=== PATIENT | male | born 1965 | race African-American/Black ===

== ENCOUNTER 2016-02-26 13:04 | Emergency (ER) | payer MEDICARE, MEDICAID ==
[2016-02-26] MEDS ORDERED: Triple Antibiotic Oint 1 GM Packet ONE (13:39)
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
== END 2016-02-26 14:03 | disposition home or self-care (01) ==
LOC: BURERS 13:04
DX: T21.24XA Burn of second degree of lower back, initial encounter (principal); E11.9 Type 2 diabetes mellitus without complications; K21.9 Gastro-esophageal reflux disease without esophagitis; I10 Essential (primary) hypertension; F20.9 Schizophrenia, unspecified; X19.XXXA Contact with other heat and hot substances, initial encounter
CPT/HCPCS: 36416; 99283

== ENCOUNTER 2016-03-10 10:59 | Outpatient (CLI) | payer MEDICARE, MEDICAID ==
--- NOTE | 2016-03-10 21:13 | RAD ---
LUMBAR SPINE 03/10/16 Multiple views are provided. There has been a prior laminectomy at the L4 and L5 levels that extends down to the top of S1. Minor anterolisthesis of L4 on L5 is probably due to facet arthritis which i s prominent at that level. The disc spaces all remain normal in height. Some small anterior osteophy emery are noted at most levels. Very minor anterior wedging of T11 through L1 does not appear acute an d is probably longstanding. The oblique views shows the pars to be intact bilaterally. The SI joints are unremarkable. IMPRESSION: Degenerative changes as noted but no acute finding. POS: HOME
== END 2016-03-10 11:00 | disposition home or self-care (01) ==
LOC: BURRAD 10:59
PROVIDERS: ATTEND Family Medicine
DX: M54.5 Low back pain (principal); M47.816 Spondylosis without myelopathy or radiculopathy, lumbar region
CPT/HCPCS: 72110

== ENCOUNTER 2016-04-07 10:49 | Emergency (ER) | payer MEDICARE, MEDICAID ==
[2016-04-07] MEDS ORDERED: Bacitracin Zinc 1 Packet ONE (11:08)
[2016-04-07 11:40] LABS: #Basophils 0.1 thou/uL (0.0-0.2); #Eosinphils 0.2 thou/uL (0.0-0.7); #Lymphocytes 1.2 thou/uL (1.20-3.40); #Monocytes 0.6 thou/uL (0.11-0.59); #Neutrophils 3.4 thou/uL (1.40-6.50); %Eosinophils 2.8 % (0.0-10.0); %Monocytes 11.2 % (0.0-10.0); Hematocrit 48.9 % (42.0-52.0); Mean Platelet Volume 7.7 fL (7.4-10.4); Red Blood Cell (RBC) Count 5.37 mill/uL (4.70-6.10); White Blood Cell (WBC) Count 5.4 thou/uL (4.8-10.8)
[2016-04-07 11:48] LABS: ALT (SGPT) 32 U/L (0-55); AST (SGOT) 35 U/L (5-34); Acetaminophen Less than 3.0 mcg/mL (10.0-30.0); Alkaline Phosphatase 71 U/L (40-150); Anion Gap 16 mmol/L (10-20); BUN (Urea Nitrogen) 12 mg/dL (8.4-25.7); Bilirubin, Total 1.5 mg/dL (0.2-1.2); Calc. Creatinine Clearance 0 mL/min (70-130); Calcium 9.7 mg/dL (7.8-10.44); Carbon Dioxide 23 mmol/L (22-29); Chloride 105 mmol/L (98-107); Estimated GFR-MDRD 74; Globulin 3.5 g/dL (2.4-3.5); Protein, Total 8.2 g/dL (6.0-8.3); Salicylate Less than 5.0 mg/dL (15.0-30.0)
[2016-04-07 11:49] LABS: Troponin I 0.012 ng/mL (< 0.028)
[2016-04-07] MEDS ORDERED: Lisinopril 5 MG TAB ONE (15:23)
--- NOTE | 2016-04-07 16:15 | RAD ---
PORTABLE CHEST: Date: 04-07-16 Comparison: 10-15-15 FINDINGS: There has been no adverse interval change. The heart size is normal. There is no congestive change , pleural effusion, or focal pulmonary infiltrate. If symptoms continue, upright PA and lateral vie ws could be helpful. IMPRESSION: No acute finding. POS: HOME
== END 2016-04-07 17:38 ==
LOC: BURERS 10:49
DX: T21.34XD Burn of third degree of lower back, subsequent encounter (principal); F20.9 Schizophrenia, unspecified; I10 Essential (primary) hypertension; K21.9 Gastro-esophageal reflux disease without esophagitis; E11.9 Type 2 diabetes mellitus without complications; J45.909 Unspecified asthma, uncomplicated; F31.9 Bipolar disorder, unspecified; Z86.711 Personal history of pulmonary embolism; Z79.899 Other long term (current) drug therapy
CPT/HCPCS: 36415; 71010; 80053; 80307; 82553; 84443; 84484; 85025; 99285

== ENCOUNTER 2016-04-23 13:04 | Inpatient (IN) | payer MEDICARE, MEDICAID ==
[2016-04-23] MEDS ORDERED: Dextrose 5% in Water 1,000 ML IV PRN (15:43)
[2016-04-23] MEDS ORDERED: Dextrose 50% Abboject 50 ML SYRINGE IVP PRN (15:44)
[2016-04-23] MEDS: traMADol HCl 50 MG TAB PO PRN (17:29)
[2016-04-23] MEDS: Arformoterol 15 MCG/2 ML NEB NEB SCH (19:43)
[2016-04-23] MEDS: Budesonide 0.5 MG/2 ML NEB NEB SCH (19:53)
[2016-04-23] MEDS: Montelukast Sodium 10 mg Tablet PO SCH (20:43)
[2016-04-23] MEDS: Tamsulosin HCl 0.4 MG CAP PO SCH (20:43)
[2016-04-24] MEDS ORDERED: FLU VACC QS2016-17 36MOS UP/PF 0.5 ML SYRINGE IM ONE (09:00)
[2016-04-24] MEDS: Budesonide 0.5 MG/2 ML NEB NEB SCH ×2 (09:07→18:57)
[2016-04-24] MEDS: Rivaroxaban 10 MG TAB PO SCH (09:09)
[2016-04-24] MEDS: Finasteride 5 MG TAB PO SCH (09:10)
[2016-04-24] MEDS: glyBURIDE 5 MG TAB PO SCH (09:10)
[2016-04-24] MEDS: Lisinopril 5 MG TAB PO SCH (09:10)
[2016-04-24] MEDS: Aripiprazole 10 MG TAB PO SCH (09:11)
[2016-04-24] MEDS: traMADol HCl 50 MG TAB PO PRN (09:18)
[2016-04-24] MEDS: Arformoterol 15 MCG/2 ML NEB NEB SCH ×2 (09:19→18:49)
[2016-04-24] MEDS: Silver Sulfadiazine 1% Cream 20 GM TUBE TOP SCH ×2 (09:22→14:40)
[2016-04-24] MEDS ORDERED: Silver Sulfadiazine 1% Cream 50 GM JAR ONE (11:50)
[2016-04-24] MEDS: Montelukast Sodium 10 mg Tablet PO SCH (21:30)
[2016-04-24] MEDS: Tamsulosin HCl 0.4 MG CAP PO SCH (21:30)
[2016-04-24] MEDS: HumaLOG 300 UNITS/3 ML VIAL SC PRN (21:41)
[2016-04-25] MEDS: Arformoterol 15 MCG/2 ML NEB NEB SCH ×2 (06:14→18:32)
[2016-04-25] MEDS: Budesonide 0.5 MG/2 ML NEB NEB SCH ×2 (06:18→18:51)
[2016-04-25] MEDS: Lisinopril 5 MG TAB PO SCH (08:26)
[2016-04-25] MEDS: glyBURIDE 5 MG TAB PO SCH (08:26)
[2016-04-25] MEDS: Finasteride 5 MG TAB PO SCH (08:26)
[2016-04-25] MEDS: Aripiprazole 10 MG TAB PO SCH (08:26)
[2016-04-25] MEDS: Rivaroxaban 10 MG TAB PO SCH (08:27)
[2016-04-25] MEDS: traMADol HCl 50 MG TAB PO PRN ×3 (08:27→20:27)
[2016-04-25] MEDS: Silver Sulfadiazine 1% Cream 20 GM TUBE TOP SCH (08:28)
[2016-04-25] MEDS: HumaLOG 300 UNITS/3 ML VIAL SC PRN (08:28)
[2016-04-25] MEDS: Montelukast Sodium 10 mg Tablet PO SCH (20:26)
[2016-04-25] MEDS: Tamsulosin HCl 0.4 MG CAP PO SCH (20:27)
[2016-04-26] MEDS: Arformoterol 15 MCG/2 ML NEB NEB SCH ×2 (05:52→18:44)
[2016-04-26] MEDS: Budesonide 0.5 MG/2 ML NEB NEB SCH ×2 (06:20→18:33)
[2016-04-26] MEDS: Lisinopril 5 MG TAB PO SCH (08:54)
[2016-04-26] MEDS: Aripiprazole 10 MG TAB PO SCH (08:54)
[2016-04-26] MEDS: Rivaroxaban 10 MG TAB PO SCH (08:54)
[2016-04-26] MEDS: Finasteride 5 MG TAB PO SCH (08:54)
[2016-04-26] MEDS: Silver Sulfadiazine 1% Cream 20 GM TUBE TOP SCH (08:55)
[2016-04-26] MEDS: glyBURIDE 5 MG TAB PO SCH (08:55)
[2016-04-26] MEDS: Montelukast Sodium 10 mg Tablet PO SCH (21:02)
[2016-04-26] MEDS: Tamsulosin HCl 0.4 MG CAP PO SCH (21:02)
[2016-04-27] MEDS: Arformoterol 15 MCG/2 ML NEB NEB SCH ×2 (07:12→19:05)
[2016-04-27] MEDS: Budesonide 0.5 MG/2 ML NEB NEB SCH ×2 (07:16→19:11)
[2016-04-27] MEDS: Lisinopril 5 MG TAB PO SCH (09:23)
[2016-04-27] MEDS: Rivaroxaban 10 MG TAB PO SCH (09:26)
[2016-04-27] MEDS: glyBURIDE 5 MG TAB PO SCH (09:27)
[2016-04-27] MEDS: Silver Sulfadiazine 1% Cream 20 GM TUBE TOP SCH (09:27)
[2016-04-27] MEDS: Finasteride 5 MG TAB PO SCH (09:27)
[2016-04-27] MEDS: Aripiprazole 10 MG TAB PO SCH (09:28)
[2016-04-27] MEDS: traMADol HCl 50 MG TAB PO PRN (18:09)
[2016-04-27] MEDS: Tamsulosin HCl 0.4 MG CAP PO SCH (20:45)
[2016-04-27] MEDS: Montelukast Sodium 10 mg Tablet PO SCH (20:45)
[2016-04-28] MEDS: traMADol HCl 50 MG TAB PO PRN ×2 (04:28→10:49)
[2016-04-28] MEDS: Arformoterol 15 MCG/2 ML NEB NEB SCH ×2 (06:24→18:54)
[2016-04-28] MEDS: Budesonide 0.5 MG/2 ML NEB NEB SCH ×2 (06:28→18:52)
[2016-04-28] MEDS: glyBURIDE 5 MG TAB PO SCH (08:59)
[2016-04-28] MEDS: Finasteride 5 MG TAB PO SCH (09:00)
[2016-04-28] MEDS: Aripiprazole 10 MG TAB PO SCH (09:00)
[2016-04-28] MEDS: Lisinopril 5 MG TAB PO SCH (09:00)
[2016-04-28] MEDS: Silver Sulfadiazine 1% Cream 20 GM TUBE TOP SCH (09:01)
[2016-04-28] MEDS: Rivaroxaban 10 MG TAB PO SCH (10:48)
[2016-04-28] MEDS: Tamsulosin HCl 0.4 MG CAP PO SCH (20:47)
[2016-04-28] MEDS: Montelukast Sodium 10 mg Tablet PO SCH (20:47)
[2016-04-29] MEDS: Arformoterol 15 MCG/2 ML NEB NEB SCH ×2 (06:07→17:28)
[2016-04-29] MEDS: Budesonide 0.5 MG/2 ML NEB NEB SCH ×2 (06:09→17:50)
[2016-04-29] MEDS: Aripiprazole 10 MG TAB PO SCH (08:57)
[2016-04-29] MEDS: glyBURIDE 5 MG TAB PO SCH (08:58)
[2016-04-29] MEDS: Finasteride 5 MG TAB PO SCH (08:58)
[2016-04-29] MEDS: Lisinopril 5 MG TAB PO SCH (08:59)
[2016-04-29] MEDS: Silver Sulfadiazine 1% Cream 20 GM TUBE TOP SCH (09:00)
[2016-04-29] MEDS: Rivaroxaban 10 MG TAB PO SCH (09:00)
[2016-04-29] MEDS: Tamsulosin HCl 0.4 MG CAP PO SCH (21:14)
[2016-04-29] MEDS: Montelukast Sodium 10 mg Tablet PO SCH (21:14)
[2016-04-30] MEDS: Arformoterol 15 MCG/2 ML NEB NEB SCH ×2 (09:43→17:52)
[2016-04-30] MEDS: Budesonide 0.5 MG/2 ML NEB NEB SCH ×2 (09:51→17:46)
[2016-04-30] MEDS: Lisinopril 5 MG TAB PO SCH (09:54)
[2016-04-30] MEDS: glyBURIDE 5 MG TAB PO SCH (09:55)
[2016-04-30] MEDS: Aripiprazole 10 MG TAB PO SCH (09:56)
[2016-04-30] MEDS: Rivaroxaban 10 MG TAB PO SCH (09:57)
[2016-04-30] MEDS: Silver Sulfadiazine 1% Cream 20 GM TUBE TOP SCH (09:59)
[2016-04-30] MEDS: Finasteride 5 MG TAB PO SCH (10:04)
[2016-04-30] MEDS: Montelukast Sodium 10 mg Tablet PO SCH (20:22)
[2016-04-30] MEDS: Tamsulosin HCl 0.4 MG CAP PO SCH (20:22)
[2016-05-01] MEDS: Arformoterol 15 MCG/2 ML NEB NEB SCH ×2 (06:21→17:46)
[2016-05-01] MEDS: Budesonide 0.5 MG/2 ML NEB NEB SCH ×2 (06:32→17:44)
[2016-05-01] MEDS: glyBURIDE 5 MG TAB PO SCH (09:46)
[2016-05-01] MEDS: Finasteride 5 MG TAB PO SCH (09:48)
[2016-05-01] MEDS: Aripiprazole 10 MG TAB PO SCH (09:49)
[2016-05-01] MEDS: Rivaroxaban 10 MG TAB PO SCH (09:50)
[2016-05-01] MEDS: Silver Sulfadiazine 1% Cream 20 GM TUBE TOP SCH (09:51)
[2016-05-01] MEDS: Lisinopril 5 MG TAB PO SCH (10:50)
[2016-05-01] MEDS: Montelukast Sodium 10 mg Tablet PO SCH (20:17)
[2016-05-01] MEDS: Tamsulosin HCl 0.4 MG CAP PO SCH (20:17)
[2016-05-02] MEDS: Arformoterol 15 MCG/2 ML NEB NEB SCH ×2 (06:13→19:00)
[2016-05-02] MEDS: Budesonide 0.5 MG/2 ML NEB NEB SCH ×2 (06:23→19:38)
[2016-05-02] MEDS: traMADol HCl 50 MG TAB PO PRN ×2 (09:21→23:13)
[2016-05-02] MEDS: Rivaroxaban 10 MG TAB PO SCH (09:24)
[2016-05-02] MEDS: Finasteride 5 MG TAB PO SCH (09:25)
[2016-05-02] MEDS: Lisinopril 5 MG TAB PO SCH (09:25)
[2016-05-02] MEDS: glyBURIDE 5 MG TAB PO SCH (09:25)
[2016-05-02] MEDS: Aripiprazole 10 MG TAB PO SCH (09:27)
[2016-05-02] MEDS: Silver Sulfadiazine 1% Cream 20 GM TUBE TOP SCH (09:27)
[2016-05-02] MEDS: Montelukast Sodium 10 mg Tablet PO SCH (21:23)
[2016-05-02] MEDS: Tamsulosin HCl 0.4 MG CAP PO SCH (21:23)
[2016-05-03] MEDS: Arformoterol 15 MCG/2 ML NEB NEB SCH ×2 (06:14→18:16)
[2016-05-03] MEDS: Budesonide 0.5 MG/2 ML NEB NEB SCH ×2 (06:18→18:22)
[2016-05-03] MEDS: Finasteride 5 MG TAB PO SCH (08:34)
[2016-05-03] MEDS: glyBURIDE 5 MG TAB PO SCH (08:34)
[2016-05-03] MEDS: Lisinopril 5 MG TAB PO SCH (08:35)
[2016-05-03] MEDS: Silver Sulfadiazine 1% Cream 20 GM TUBE TOP SCH (08:36)
[2016-05-03] MEDS: Rivaroxaban 10 MG TAB PO SCH (08:36)
[2016-05-03] MEDS: Aripiprazole 10 MG TAB PO SCH (08:36)
[2016-05-03] MEDS: traMADol HCl 50 MG TAB PO PRN ×2 (08:39→21:37)
[2016-05-03] MEDS: Montelukast Sodium 10 mg Tablet PO SCH (20:04)
[2016-05-03] MEDS: Tamsulosin HCl 0.4 MG CAP PO SCH (20:04)
[2016-05-04] MEDS: Arformoterol 15 MCG/2 ML NEB NEB SCH ×2 (06:08→18:01)
[2016-05-04] MEDS: Budesonide 0.5 MG/2 ML NEB NEB SCH ×2 (06:12→18:07)
[2016-05-04] MEDS: traMADol HCl 50 MG TAB PO PRN (08:43)
[2016-05-04] MEDS: Lisinopril 5 MG TAB PO SCH (08:43)
[2016-05-04] MEDS: Finasteride 5 MG TAB PO SCH (08:43)
[2016-05-04] MEDS: Aripiprazole 10 MG TAB PO SCH (08:44)
[2016-05-04] MEDS: Silver Sulfadiazine 1% Cream 20 GM TUBE TOP SCH (08:44)
[2016-05-04 12:03] VITALS: BMI 41.3
[2016-05-04] MEDS: Rivaroxaban 10 MG TAB PO SCH (12:11)
[2016-05-04 18:07] VITALS: BP 113/66; TEMP 97.6
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
[2016-05-07] MEDS ORDERED: INVEGA SUSTENNA 234 MG IM SCH (13:00)
[2016-05-08] MEDS ORDERED: INVEGA SUSTENNA 234 MG IM SCH (15:45)
== END 2016-05-04 19:15 | disposition home health service (06) | DRG 885 ==
LOC: BURMED 14:53
PROVIDERS: ADMIT Family Medicine; ATTEND Family Medicine
DX: F20.2 Catatonic schizophrenia (principal); I26.99 Other pulmonary embolism without acute cor pulmonale; N39.0 Urinary tract infection, site not specified; R33.9 Retention of urine, unspecified; R73.03 Prediabetes; J45.909 Unspecified asthma, uncomplicated; E66.9 Obesity, unspecified; I10 Essential (primary) hypertension; T21.24XD Burn of second degree of lower back, subsequent encounter; K21.9 Gastro-esophageal reflux disease without esophagitis; I12.9 Hypertensive chronic kidney disease with stage 1 through stage 4 chronic kidney disease, or unspecified chronic kidney disease; N18.3 Chronic kidney disease, stage 3 (moderate); E78.5 Hyperlipidemia, unspecified; M19.90 Unspecified osteoarthritis, unspecified site
CPT/HCPCS: 36416; 94640; G8987-GO-CM; G8988-GO-CJ; J7626

== ENCOUNTER 2016-05-17 14:38 | Outpatient (CLI) | payer MEDICARE, MEDICAID ==
--- NOTE | 2016-05-17 21:31 | RAD ---
LUMBAR SPINE THREE VIEWS: Date: 05-17-16 Comparison: 03-10-16 FINDINGS: There has been a prior laminectomy at L4 and L5. No acute bony findings were appreciated. The disc spaces are normal in height. A degenerated disc is suggested at L5-S1. There is slight anterolisthesis of L4 on L5 which was present before. Anterior osteophytes are seen at multiple levels. The SI joints are symmetrical. IMPRESSION: No acute finding. POS: HOME
== END 2016-05-17 14:39 | disposition home or self-care (01) ==
LOC: BURRAD 14:38
PROVIDERS: ATTEND Family Medicine
DX: M54.5 Low back pain (principal)
CPT/HCPCS: 72100

== ENCOUNTER 2016-05-29 14:10 | Emergency (ER) | payer MEDICARE, MEDICAID ==
[2016-05-29 14:33] LABS: Bilirubin Negative (Negative); Blood, Urine Negative (Negative); Clarity Clear (Clear); Glucose, Urine (Dipstick) Negative (Negative); Leukocyte Small (Negative); Nitrite Negative (Negative); Protein, Urine (Dipstick) Negative (Neg-Trace); Specific Gravity, Urine 1.015 (1.005-1.030); Urobilinogen 0.2 mg/dL (0.2-1.0); pH, Urine 6.5 (5.0-9.0)
[2016-05-29] MEDS ORDERED: traMADol HCl 50 MG TAB ONE (14:34)
[2016-05-29 14:39] LABS: Bacteria/HPF None Seen HPF (None Seen); RBC/HPF None Seen HPF (0-3); Squamous Epithelial None Seen HPF (0-3); WBC/HPF 0-3 HPF (0-3)
== END 2016-05-29 14:57 | disposition home or self-care (01) ==
LOC: BURERS 14:10
DX: M54.5 Low back pain (principal); K21.9 Gastro-esophageal reflux disease without esophagitis; I10 Essential (primary) hypertension; E11.9 Type 2 diabetes mellitus without complications; F31.9 Bipolar disorder, unspecified; Z86.711 Personal history of pulmonary embolism
CPT/HCPCS: 81003; 81015; 99283

== ENCOUNTER 2016-05-30 15:47 | Emergency (ER) | payer MEDICARE, MEDICAID ==
[2016-05-30 16:38] LABS: ALT (SGPT) 36 U/L (0-55); AST (SGOT) 22 U/L (5-34); Alkaline Phosphatase 63 U/L (40-150); Anion Gap 13 mmol/L (10-20); BUN (Urea Nitrogen) 9 mg/dL (8.4-25.7); Bilirubin, Total 1.1 mg/dL (0.2-1.2); Calc. Creatinine Clearance 0 mL/min (70-130); Calcium 9.2 mg/dL (7.8-10.44); Carbon Dioxide 24 mmol/L (22-29); Chloride 106 mmol/L (98-107); Estimated GFR-MDRD Greater than 90; Globulin 3.1 g/dL (2.4-3.5); Glucose 124 mg/dL (70-105); Potassium 3.7 mmol/L (3.5-5.1); Protein, Total 7.1 g/dL (6.0-8.3); Sodium 139 mmol/L (136-145)
[2016-05-30 16:45] LABS: CKMB 1.9 ng/mL (0-6.6); Mean Corpuscular HGB CONC 35.4 g/dL (32.0-36.0); Mean Corpuscular Hemoglobin 32.6 pg (27.0-31.0); Mean Corpuscular Volume 92.3 fl (80.0-94.0); Mean Platelet Volume 8.1 fL (7.4-10.4); Platelet Count 193 thou/uL (130-400)
--- NOTE | 2016-05-30 16:50 | RAD ---
PORTABLE CHEST: History: Dyspnea. FINDINGS: The lungs appear clear. No infiltrates seen. Heart and mediastinum appear unremarkable. IMPRESSION: No evidence of acute process. POS: [facility]
[2016-05-30 17:21] LABS: White Blood Cell (WBC) Count 4.9 thou/uL (4.8-10.8)
[2016-05-30 17:30] LABS: Eosinophils 4 % (0-10); Lymphocytes 32 % (21-51); MDiff Complete? YES; Monocytes 6 % (0-10); Neutrophil 58 % (42-75); PLT Morphology Comment Appears Adequate; RBC Morphology Normal
== END 2016-05-30 17:29 | disposition home or self-care (01) ==
LOC: BURERS 15:47
DX: F41.9 Anxiety disorder, unspecified (principal); I10 Essential (primary) hypertension; J45.909 Unspecified asthma, uncomplicated; E11.9 Type 2 diabetes mellitus without complications; F31.9 Bipolar disorder, unspecified; F20.9 Schizophrenia, unspecified; Z79.899 Other long term (current) drug therapy
CPT/HCPCS: 36415; 71010; 80053; 82553; 83880; 84484; 85025; 93005

== ENCOUNTER 2016-07-16 13:34 | Emergency (ER) | payer MEDICARE, MEDICAID | END 2016-07-16 16:10 | disposition home or self-care (01) | LOC: BURERS 13:34 | DX: J45.909 Unspecified asthma, uncomplicated (principal); K21.9 Gastro-esophageal reflux disease without esophagitis; I10 Essential (primary) hypertension; E11.9 Type 2 diabetes mellitus without complications; F31.9 Bipolar disorder, unspecified | CPT/HCPCS: J7620 ==

== ENCOUNTER 2016-09-21 13:40 | Inpatient (IN) | payer MEDICARE, MEDICAID ==
[2016-09-21 13:58] LABS: #Basophils 0.1 thou/uL (0.0-0.2); #Eosinphils 0.2 thou/uL (0.0-0.7); #Lymphocytes 1.7 thou/uL (1.20-3.40); #Monocytes 0.7 thou/uL (0.11-0.59); %Basophils 1.3 % (0.0-1.0); %Eosinophils 2.1 % (0.0-10.0); %Lymphocytes 21.6 % (21.0-51.0); %Monocytes 9.3 % (0.0-10.0); %Neutrophils 65.6 % (42.0-75.0); Hemoglobin 15.5 g/dL (14.0-18.0); Mean Corpuscular HGB CONC 33.1 g/dL (32.0-36.0); Mean Corpuscular Hemoglobin 29.6 pg (27.0-31.0); Mean Corpuscular Volume 89.4 fl (80.0-94.0); Mean Platelet Volume 7.3 fL (7.4-10.4); Platelet Count 218 thou/uL (130-400); RBC Distribution Width 13.9 % (11.5-14.5); Red Blood Cell (RBC) Count 5.22 mill/uL (4.70-6.10); White Blood Cell (WBC) Count 7.7 thou/uL (4.8-10.8)
[2016-09-21 14:16] LABS: ALT (SGPT) 35 U/L (8-55); AST (SGOT) 42 U/L (5-34); Albumin 4.4 g/dL (3.5-5.0); Alkaline Phosphatase 61 U/L (40-150); Anion Gap 14 mmol/L (10-20); BUN (Urea Nitrogen) 19 mg/dL (8.4-25.7); Bilirubin, Total 1.3 mg/dL (0.2-1.2); Calc. Creatinine Clearance 0 mL/min (70-130); Calcium 9.7 mg/dL (7.8-10.44); Carbon Dioxide 26 mmol/L (22-29); Chloride 110 mmol/L (98-107); Estimated GFR-MDRD 61; Globulin 3.4 g/dL (2.4-3.5); Glucose 107 mg/dL (70-105); Protein, Total 7.8 g/dL (6.0-8.3); Sodium 146 mmol/L (136-145)
[2016-09-21 14:34] LABS: Bilirubin Negative (Negative); Blood, Urine Negative (Negative); Clarity Clear (Clear); Glucose, Urine (Dipstick) Negative (Negative); Leukocyte Negative (Negative); Nitrite Negative (Negative); Protein, Urine (Dipstick) Negative (Neg-Trace); pH, Urine 5.5 (5.0-9.0)
[2016-09-21] MEDS ORDERED: Ondansetron ODT 4 MG TAB PO PRN (17:56)
[2016-09-21] MEDS ORDERED: PROVENTIL INHALER 6.7 G (200 INHALATIONS) INH PRN (17:57)
[2016-09-21] MEDS ORDERED: traZODone HCl 50 MG TAB PO PRN (17:57)
[2016-09-21 18:18] LABS: Anion Gap 13 mmol/L (10-20); BUN (Urea Nitrogen) 18 mg/dL (8.4-25.7); CK (CPK) 1562 U/L (30-200); Calc. Creatinine Clearance 0 mL/min (70-130); Calcium 8.8 mg/dL (7.8-10.44); Carbon Dioxide 25 mmol/L (22-29); Chloride 111 mmol/L (98-107); Estimated GFR-MDRD 73; Glucose 111 mg/dL (70-105); Potassium 3.8 mmol/L (3.5-5.1); Sodium 145 mmol/L (136-145)
[2016-09-21] MEDS ORDERED: Haloperidol Lactate 5 MG/ML VIAL ONE (18:21)
[2016-09-21] MEDS: Haloperidol Lactate 5 MG/ML VIAL IM PRN (18:24)
[2016-09-21 19:04] VITALS: BMI 42.5
[2016-09-21] MEDS: Mometasone/Formoterol 60 PUFF AER INH SCH (19:55)
[2016-09-21] MEDS: Montelukast Sodium 10 mg Tablet PO SCH (19:57)
[2016-09-21] MEDS: Tamsulosin HCl 0.4 MG CAP PO SCH (19:58)
--- NOTE | 2016-09-21 20:14 | RAD ---
PORTABLE CHEST 09/21/16 An AP portable film at 1359 is compared with a 05/30/16 study. The heart is mildly enlarged. It is probably a little more so than on May study, even allowing for differences in projection. But there is no vascular congestion, edema, or large pleural effusion pr esent. The trachea is midline considering the positioning of the patient. IMPRESSION: Slight cardiomegaly. POS: HOME
[2016-09-21] MEDS: Sodium Chloride 0.9% 1,000 ML IV SCH (21:39)
--- NOTE | 2016-09-22 04:53 | HP ---
CHIEF COMPLAINT: Dehydration. HISTORY OF PRESENT ILLNESS: A 51-year-old male with underlying schizoaffective disorder which acutely worsened prompted evaluation at [facility]. According to family member, the patient's mental status declined over the last few days of which he has experienced similar symptoms in the past. During these episodes, the patient becomes less conversational with associated poor intake. It is reported that the patient has been taking his medications as usual for the underlying condition, which include Abilify and Cogentin. In addition to this, he receives a monthly Invega injection via Dr. Shannon at [facility]. The patient is next due for his Invega injection next week, Tuesday, and has reportedly not missed any to this point. Family member states that he was to have an increased intensity of this medication to her knowledge. The patient's prior admission to this in April of this year involved catatonic schizophrenia; however, at that time, it was felt to be secondary to lack of medication compliance. In the emergency department, lab evaluation revealed an elevated creatine kinase of 1766 along with some ketones in his urine. Thus, he was started on intravenous fluids and has been admitted to improve his hydration status and hopefully further address his decline in mental status. The history is somewhat limited and provided via the emergency department and from a family member herself. PAST MEDICAL HISTORY: Includes moderate persistent asthma without complications , morbid obesity, schizoaffective disorder, pulmonary emboli, and history of type 2 diabetes mellitus - now diet controlled, hypertension. PAST SURGICAL HISTORY: Cervical spinal procedure 10/2012 and a lumbar back procedure as well. SOCIAL HISTORY: He typically lives with his mother and uncle. He is a nonsmoker with no known history of alcohol or illicit drug use. FAMILY HISTORY: Noncontributory. ALLERGIES: Include BACTRIM, PRADAXA, and CLARITHROMYCIN. CURRENT MEDICATIONS: Include Invega 234 mg intramuscular once a month, Proventil l puff q. 4 hours p.r.n., Abilify 20 mg p.o. daily, benztropine 1 mg p.o. at bedtime, finasteride 5 mg p.o. daily, lisinopril 5 mg p.o. daily, Advair 1 puff b.i.d., montelukast 10 mg p.o. daily, Xarelto 20 mg p.o. daily, Flomax 0.4 mg p.o. at bedtime, Trazodone 50 mg p.o. at bedtime p.r.n. REVIEW OF SYSTEMS: Unable to obtain secondary to the patient being nonverbal. LABORATORY DATA: White blood cell count 7.7, H\H 15.5 and 46.6, platelets 218. Sodium 146, potassium is 4.0, BUN is 19, creatinine is 1.47, glucose 107. Creatine kinase 1766. Urine has ketones, otherwise clear. Chest x-ray was performed, reported no acute thoracic findings; however, official review is pending. PHYSICAL EXAMINATION: VITAL SIGNS: Temperature is 98.0, pulse is 85, respiratory rate is 40, oxygen saturation is 95% on room air, and blood pressure is 127/80. GENERAL: The patient is restless with akathisia; obese. He is nonverbal but alert. FACE: No asymmetry. HEENT: Conjunctivae are clear. Extraocular muscles are intact bilaterally. No discharge. Head, eyes, ears, nose, and throat within normal limits. NECK: No lymphadenopathy, no meningeal signs. CARDIOVASCULAR: Regular rate and rhythm. Normal S1, S2. No murmurs, rubs, or gallops. RESPIRATORY: Clear to auscultation bilaterally. He is tachypneic. GASTROINTESTINAL: Soft, nontender to palpation, no masses. EXTREMITIES: No clubbing, cyanosis, or edema. SKIN: A well-healed scar overlying the cervical spine and lumbar spine. No rashes. NEUROLOGIC: The patient does not respond appropriately to commands. Cranial nerves appear intact. ASSESSMENT AND PLAN: 1. Dehydration. We will continue normal saline intravenous fluids. 2. Schizoaffective disorder, currently uncontrolled. We will add haloperidol 5 mg q. 4 hours p.r.n. with 1 dose now in an attempt to stop his restless state and hopefully return the patient back to his baseline regarding verbal status and p.o. intake. We will continue his home Abilify dose along with benztropine. He will need close follow up with Dr. Shannon at [facility] when able. 3. Moderate persistent asthma without complications. The patient is tachypneic which is typical for episodes such as these that he has had in the past and not consistent with an asthma exacerbation. His usual medicines will be continued with Dulera to substitute for Advair and p.r.n. Proventil inhaler. 4. Hypertension. The patient's blood pressure is well controlled and he is hemodynamically stable. 5. History of pulmonary emboli. The patient has had more than 1 blood clot in the past and thus is on indefinite anticoagulation therapy, for which he is taking Xarelto. This will be continued. 6. Obesity. Chronic issue. 7. Prophylaxis. We will provide proton pump inhibitor and continue home Xarelto. [facility]
[2016-09-22] MEDS ORDERED: Lorazepam 2 MG/ML VIAL SLOW IVP PRN (06:45)
[2016-09-22] MEDS ORDERED: Haloperidol Lactate 5 MG/ML VIAL ONE (06:49)
[2016-09-22] MEDS: Haloperidol Lactate 5 MG/ML VIAL IM PRN (06:56)
[2016-09-22 07:17] LABS: ALT (SGPT) 29 U/L (8-55); AST (SGOT) 34 U/L (5-34); Albumin 3.7 g/dL (3.5-5.0); Alkaline Phosphatase 53 U/L (40-150); Anion Gap 13 mmol/L (10-20); BUN (Urea Nitrogen) 13 mg/dL (8.4-25.7); Bilirubin, Total 1.3 mg/dL (0.2-1.2); CK (CPK) 1419 U/L (30-200); Calc. Creatinine Clearance 170 mL/min (70-130); Calcium 8.6 mg/dL (7.8-10.44); Carbon Dioxide 23 mmol/L (22-29); Chloride 113 mmol/L (98-107); Estimated GFR-MDRD 82; Globulin 2.8 g/dL (2.4-3.5); Glucose 121 mg/dL (70-105); Potassium 4.1 mmol/L (3.5-5.1); Protein, Total 6.5 g/dL (6.0-8.3); Sodium 145 mmol/L (136-145)
[2016-09-22] MEDS: Lorazepam 2 MG/ML VIAL SLOW IVP SCH ×3 (08:12→18:41)
[2016-09-22] MEDS: Sodium Chloride 0.9% 1,000 ML IV SCH ×2 (08:16→10:05)
[2016-09-22] MEDS: Mometasone/Formoterol 60 PUFF AER INH SCH ×2 (08:30→18:38)
[2016-09-22] MEDS: Rivaroxaban 10 MG TAB PO SCH (08:38)
[2016-09-22] MEDS: Lisinopril 5 MG TAB PO SCH (08:38)
[2016-09-22] MEDS ORDERED: Aripiprazole 10 MG TAB PO SCH (09:00)
[2016-09-22] MEDS: Finasteride 5 MG TAB PO SCH (10:00)
[2016-09-22] MEDS: Aripiprazole 10 MG TAB PO SCH (10:01)
[2016-09-22] MEDS ORDERED: Neomycin-Polymyxin-Hc 7.5 ML BOT EA EYE SCH (15:15)
[2016-09-22] MEDS ORDERED: Neomycin-Polymyxin-Hc 7.5 ML BOT ONE (17:42)
[2016-09-22] MEDS: Budesonide 0.5 MG/2 ML NEB INH SCH (18:21)
[2016-09-22] MEDS: Tamsulosin HCl 0.4 MG CAP PO SCH ×2 (20:41→20:47)
[2016-09-22] MEDS: Montelukast Sodium 10 mg Tablet PO SCH ×2 (20:41→20:46)
[2016-09-23] MEDS ORDERED: Lorazepam 2 MG/ML VIAL ONE (01:04)
[2016-09-23] MEDS: Lorazepam 2 MG/ML VIAL SLOW IVP SCH ×4 (01:20→18:27)
[2016-09-23] MEDS: Sodium Chloride 0.9% 1,000 ML IV SCH (03:50)
[2016-09-23 05:42] LABS: ALT (SGPT) 23 U/L (8-55); AST (SGOT) 23 U/L (5-34); Albumin 3.6 g/dL (3.5-5.0); Alkaline Phosphatase 52 U/L (40-150); Anion Gap 12 mmol/L (10-20); BUN (Urea Nitrogen) 11 mg/dL (8.4-25.7); Bilirubin, Total 0.7 mg/dL (0.2-1.2); CK (CPK) 763 U/L (30-200); Calc. Creatinine Clearance 159 mL/min (70-130); Calcium 8.7 mg/dL (7.8-10.44); Carbon Dioxide 27 mmol/L (22-29); Chloride 107 mmol/L (98-107); Estimated GFR-MDRD 76; Globulin 3.1 g/dL (2.4-3.5); Glucose 128 mg/dL (70-105); Potassium 4.5 mmol/L (3.5-5.1); Protein, Total 6.7 g/dL (6.0-8.3); Sodium 141 mmol/L (136-145)
[2016-09-23] MEDS ORDERED: Lorazepam 2 MG/ML VIAL SLOW IVP PRN (06:35)
[2016-09-23] MEDS: Mometasone/Formoterol 60 PUFF AER INH SCH ×2 (08:54→18:28)
[2016-09-23] MEDS: Rivaroxaban 10 MG TAB PO SCH (08:56)
[2016-09-23] MEDS: Budesonide 0.5 MG/2 ML NEB INH SCH ×2 (08:57→18:34)
[2016-09-23] MEDS: Aripiprazole 10 MG TAB PO SCH (09:05)
[2016-09-23] MEDS: Lisinopril 5 MG TAB PO SCH (09:11)
[2016-09-23] MEDS: Finasteride 5 MG TAB PO SCH (09:35)
[2016-09-23] MEDS: Montelukast Sodium 10 mg Tablet PO SCH (22:14)
[2016-09-23] MEDS: Tamsulosin HCl 0.4 MG CAP PO SCH (22:14)
[2016-09-24] MEDS: Lorazepam 2 MG/ML VIAL SLOW IVP SCH ×3 (00:36→12:37)
[2016-09-24] MEDS: Mometasone/Formoterol 60 PUFF AER INH SCH (06:24)
[2016-09-24] MEDS: Budesonide 0.5 MG/2 ML NEB INH SCH (06:25)
[2016-09-24] MEDS: Rivaroxaban 10 MG TAB PO SCH (09:09)
[2016-09-24] MEDS: Finasteride 5 MG TAB PO SCH (09:10)
[2016-09-24] MEDS: Lisinopril 5 MG TAB PO SCH (09:10)
[2016-09-24 09:17] VITALS: BP 142/68
[2016-09-24] MEDS: Aripiprazole 10 MG TAB PO SCH (09:17)
[2016-09-24 10:57] VITALS: TEMP 97.8
[2016-09-24] MEDS ORDERED: Neomycin-Polymyxin-Hc 7.5 ML BOT EA EYE SCH (21:00)
--- NOTE | 2016-09-24 23:54 | DIS ---
DATE OF ADMISSION: 09/21/2016 DATE OF DISCHARGE: To swing patient status, 09/24/2016. ADMISSION DIAGNOSES: Dehydration, uncontrolled schizoaffective disorder, history of asthma, obesity, history of pulmonary emboli, and hypertension. DISCHARGE DIAGNOSES: Dehydration, uncontrolled schizoaffective disorder, history of asthma, obesity, history of pulmonary emboli, hypertension with improvements of schizoaffective disorder and resolution of dehydration and also resolution of acute kidney injury, urinary retention, resolved. PROCEDURES: Chest x-ray on 09/21/2016, which showed slight cardiomegaly. HOSPITAL COURSE: A 51-year-old male with underlying schizoaffective disorder who presented to [facility] with altered mental status accompanied by poor intake. In the emergency department, the patient was noted to have an elevated creatine kinase level of 1766 and elevated creatinine of 1.47. He was started on intravenous fluids accordingly and admitted to the floor. He was notably quite restless with akathisia while on the floor and thus scheduled lorazepam was ordered in addition to continuance of his usual prescribed antipsychotic medications; haloperidol was also ordered for p.r.n. use, which was given on a couple of occasions. The patient had noted urinary retention, which is similar to prior admissions for the same diagnoses thus a Guo catheter was placed. Subsequent lab evaluation showed improvements of the patient's renal status with a creatinine trending down to 1.13 at its best and creatine kinase down to 763. The patient has gradually become more responsive and appropriate towards his baseline mental status and improved his oral intake, so his intravenous fluids were discontinued. His Guo has also been removed secondary to improvements in his mental status. The patient was reportedly taking all of his medications as prescribed prior to his admission and he is followed by Dr. Shannon, psychiatrist, who he sees on a monthly basis for an injection of Invega. At this point, the patient is physically deconditioned secondary to his lack of mobility over the last few days of his admission, and thus will be transitioned from an inpatient to a swing patient to participate with physical therapy. All medications will be resumed at this time. We will plan for the patient to participate with therapy over the next couple of days until his hopeful discharge on Tuesday, when he is due for his followup appointment with Psychiatry, Dr. Shannon and monthly Invega injection. DISPOSITION: Patient will be discharged as an active inpatient and transitioned to swing bed status at this time with plans follow up with Dr. Shannon , Psychiatry on Tuesday of next week on 09/27/2016. DISCHARGE MEDICATIONS: Include Proventil inhaler 1 puff q.6 hours p.r.n., Abilify 20 mg p.o. daily, Cogentin 1 mg p.o. at bedtime, Pulmicort nebs 0.5 mg b.i.d., finasteride 5 mg p.o. daily, haloperidol 5 mg intramuscularly q.4 hours p.r.n., lisinopril 5 mg p.o. daily, lorazepam 1 mg q.6 hours, Dulera inhaler 2 puffs b.i.d., Singulair 10 mg p.o. daily, Zofran 4 mg p.o. q.6 hours p.r.n., Invega 234 mg intramuscular monthly, Protonix 40 mg p.o. daily, Xarelto 20 mg p.o. daily, Flomax 0.4 mg p.o. at bedtime, and trazodone 50 mg p.o. at bedtime p.r.n. MTDD
[2016-10-19] MEDS ORDERED: PALIPERIDONE PALMITATE 234 MG IM SCH (09:00)
[2016-10-19] MEDS ORDERED: PATIENT'S HOME MEDICATION IM SCH (09:00)
== END 2016-09-24 13:51 | disposition swing bed (61) | DRG 683 ==
LOC: BURERS 13:40 → BURMED 15:06 → OBSVTOIN 15:06
PROVIDERS: ADMIT Family Medicine; ATTEND Family Medicine
DX: N17.9 Acute kidney failure, unspecified (principal); Z68.41 Body mass index [BMI] 40.0-44.9, adult; I10 Essential (primary) hypertension; F20.2 Catatonic schizophrenia; E86.0 Dehydration; F25.9 Schizoaffective disorder, unspecified; E66.01 Morbid (severe) obesity due to excess calories; Z86.711 Personal history of pulmonary embolism; Z79.02 Long term (current) use of antithrombotics/antiplatelets; R33.9 Retention of urine, unspecified; J45.40 Moderate persistent asthma, uncomplicated; E11.9 Type 2 diabetes mellitus without complications; G25.71 Drug induced akathisia
CPT/HCPCS: 36415; 36416; 51701; 71010; 80053; 81003; 82550; 85025; 87086; 93005; 94640; 94664; 96360; A4216; J1630; J2060; J7626

== ENCOUNTER 2016-09-24 11:46 | Inpatient (IN) | payer MEDICARE, MEDICAID ==
[2016-09-24] MEDS ORDERED: Loperamide HCl 2 MG CAP PO PRN (14:49)
[2016-09-24] MEDS ORDERED: Haloperidol Lactate 5 MG/ML VIAL IM PRN (15:53)
[2016-09-24 15:54] VITALS: BMI 39.5
[2016-09-24] MEDS ORDERED: Ondansetron ODT 4 MG TAB PO PRN (15:54)
[2016-09-24] MEDS ORDERED: PROVENTIL INHALER 6.7 G (200 INHALATIONS) INH PRN (15:54)
[2016-09-24] MEDS ORDERED: traZODone HCl 50 MG TAB PO PRN (15:55)
[2016-09-24] MEDS: Acetaminophen 500 MG TAB PO PRN (15:58)
[2016-09-24] MEDS: Lorazepam 2 MG/ML VIAL SLOW IVP SCH ×2 (17:52→23:49)
[2016-09-24] MEDS: Budesonide 0.5 MG/2 ML NEB INH SCH (18:12)
[2016-09-24] MEDS: Mometasone/Formoterol 60 PUFF AER INH SCH (18:14)
[2016-09-24] MEDS: Montelukast Sodium 10 mg Tablet PO SCH (20:46)
[2016-09-24] MEDS: Tamsulosin HCl 0.4 MG CAP PO SCH (20:46)
[2016-09-25] MEDS: Budesonide 0.5 MG/2 ML NEB INH SCH ×2 (06:23→18:17)
[2016-09-25] MEDS: Mometasone/Formoterol 60 PUFF AER INH SCH ×2 (06:23→18:14)
[2016-09-25] MEDS ORDERED: Lorazepam 2 MG/ML VIAL ONE ×2 (06:29→11:49)
[2016-09-25] MEDS: Lorazepam 2 MG/ML VIAL SLOW IVP SCH ×3 (06:31→17:51)
[2016-09-25] MEDS: Lisinopril 5 MG TAB PO SCH (09:08)
[2016-09-25] MEDS: Rivaroxaban 10 MG TAB PO SCH (09:08)
[2016-09-25] MEDS: Finasteride 5 MG TAB PO SCH (09:08)
[2016-09-25] MEDS: Aripiprazole 10 MG TAB PO SCH (09:11)
[2016-09-25] MEDS: Acetaminophen 500 MG TAB PO PRN ×2 (12:56→21:03)
--- NOTE | 2016-09-25 13:17 | RAD ---
ABDOMEN 1 VIEW: HISTORY: Diarrhea, abdominal discomfort. FINDINGS/IMPRESSION: There are postop changes of cholecystectomy. The bowel gas pattern is unremarkable. There is fecal material in the colon. No suspicious calcifications are seen. There are postop changes in the low er lumbar spine. POS: [facility]
[2016-09-25] MEDS: Tamsulosin HCl 0.4 MG CAP PO SCH (21:03)
[2016-09-25] MEDS: Montelukast Sodium 10 mg Tablet PO SCH (21:03)
[2016-09-26] MEDS: Lorazepam 2 MG/ML VIAL SLOW IVP SCH ×5 (00:02→23:48)
[2016-09-26] MEDS: Acetaminophen 500 MG TAB PO PRN (03:48)
[2016-09-26] MEDS: Mometasone/Formoterol 60 PUFF AER INH SCH ×2 (05:59→18:17)
[2016-09-26] MEDS: Budesonide 0.5 MG/2 ML NEB INH SCH ×2 (06:06→18:19)
[2016-09-26] MEDS: Rivaroxaban 10 MG TAB PO SCH (08:18)
[2016-09-26] MEDS: Lisinopril 5 MG TAB PO SCH (08:18)
[2016-09-26] MEDS: Aripiprazole 10 MG TAB PO SCH (08:21)
[2016-09-26] MEDS: Finasteride 5 MG TAB PO SCH (08:21)
[2016-09-26] MEDS: Montelukast Sodium 10 mg Tablet PO SCH (20:52)
[2016-09-26] MEDS: Tamsulosin HCl 0.4 MG CAP PO SCH (20:52)
[2016-09-27] MEDS: Mometasone/Formoterol 60 PUFF AER INH SCH (05:32)
[2016-09-27] MEDS: Budesonide 0.5 MG/2 ML NEB INH SCH (05:34)
[2016-09-27] MEDS: Lorazepam 2 MG/ML VIAL SLOW IVP SCH ×2 (05:41→12:20)
[2016-09-27 06:10] VITALS: BP 108/62; TEMP 98.2
[2016-09-27] MEDS: Finasteride 5 MG TAB PO SCH (08:07)
[2016-09-27] MEDS: Acetaminophen 500 MG TAB PO PRN (08:07)
[2016-09-27] MEDS: Aripiprazole 10 MG TAB PO SCH (08:07)
[2016-09-27] MEDS: Lisinopril 5 MG TAB PO SCH (08:08)
[2016-09-27] MEDS: Rivaroxaban 10 MG TAB PO SCH (08:08)
--- NOTE | 2016-09-27 12:18 | DIS ---
DATE OF ADMISSION: 09/21/2016 DATE OF DISCHARGE: 09/27/2016 ADMISSION DIAGNOSES: 1. Dehydration. 2. Altered mental status. 3. History of asthma. 4. Obesity. 5. History of pulmonary emboli. 6. Hypertension. DISCHARGE DIAGNOSES: 1. Schizoaffective disorder. 2. Dehydration, resolved. 3. History of asthma. 4. Obesity. 5. History of pulmonary emboli. 6. Hypertension 7. Resolved acute kidney injury. 8. Urinary retention, resolved. PROCEDURES: 09/25/2016. Abdominal x-ray showed bowel gas pattern unremarkable. Fecal material in the colon. Postop changes of cholecystectomy and changes in lower lumbar spine. HOSPITAL COURSE: A 51-year-old male who presented to the [place] with altered mental status related to his underlying schizoaffective disorder. He was notably dehydrated which was attributed to poor oral intake prior to presentation. He had an elevated creatinine kinase leve l at 1766 and elevated creatinine of 1.47. Thus, he was started on intravenous fluids and admitted to the floor. The patient was noted to have urinary retention which is not atypical during his epis odes of altered mental status; he was provided a Guo catheter. For his noted akathisia he was pro vided scheduled lorazepam. The patient's mental status gradually improved and thus his intake impro abhijeet as well. Intravenous fluids were discontinued and his Guo was removed. He had a short period of diarrhea which was ultimately attributed to refeeding. The patient is followed by enzo Rodriguez hiatrist via telemedicine in [place] and he is scheduled for his monthly injection of Invega today. He was kept for an additional few days for participation with physical therapy and is now appropri ate for discharge with today's follow up with psychiatry. DISPOSITION: The patient will discharge to his home setting; however, first will be seen for his sc heduled psychiatry visit today. DISCHARGE MEDICATIONS: New medications include 1 new medication, lorazepam 0.5 mg p.o. t.i.d. He w ill continue his usual medications including Proventil inhaler 1 puff q.6 hours p.r.n., Abilify 20 m g p.o. daily, Cogentin 1 mg p.o. at bedtime, Pulmicort nebs 0.5 mg b.i.d., finasteride 5 mg p.o. weston ly, lisinopril 5 mg p.o. daily, Symbicort 2 puffs b.i.d. Singular 10 mg p.o. daily, Invega 234 mg i ntramuscular monthly. Protonix 40 mg p.o. daily, Xarelto 20 mg p.o. daily, Flomax 0.4 mg p.o. at be dtime, trazodone 50 mg p.o. at bedtime p.r.n.
[2016-10-22] MEDS ORDERED: PALIPERIDONE PALMITATE 234 MG IM SCH (09:00)
== END 2016-09-27 14:42 | disposition home health service (06) | DRG 684 ==
LOC: BURMED 13:55
PROVIDERS: ADMIT Family Medicine; ATTEND Family Medicine
DX: N17.9 Acute kidney failure, unspecified (principal); E66.01 Morbid (severe) obesity due to excess calories; I10 Essential (primary) hypertension; E86.0 Dehydration; Z68.39 Body mass index [BMI] 39.0-39.9, adult; Z86.711 Personal history of pulmonary embolism; Z79.02 Long term (current) use of antithrombotics/antiplatelets; R19.7 Diarrhea, unspecified; R33.9 Retention of urine, unspecified; F25.9 Schizoaffective disorder, unspecified; G25.71 Drug induced akathisia; J45.40 Moderate persistent asthma, uncomplicated; E11.9 Type 2 diabetes mellitus without complications
CPT/HCPCS: 74000; 94640; 94664; A4216; G8978-GP-CK; G8979-GP-CI; G8987-GO-CL; G8988-GO-CJ; J2060; J7626

== ENCOUNTER 2016-09-29 11:23 | Inpatient (IN) | payer MEDICARE, MEDICAID ==
[2016-09-29] MEDS ORDERED: Haloperidol Lactate 5 MG/ML VIAL ONE (11:47)
[2016-09-29 12:01] LABS: #Basophils 0.1 thou/uL (0.0-0.2); #Eosinphils 0.1 thou/uL (0.0-0.7); #Lymphocytes 1.3 thou/uL (1.20-3.40); #Monocytes 0.6 thou/uL (0.11-0.59); #Neutrophils 6.2 thou/uL (1.40-6.50); %Basophils 1.1 % (0.0-1.0); %Eosinophils 0.8 % (0.0-10.0); %Lymphocytes 15.7 % (21.0-51.0); %Monocytes 7.7 % (0.0-10.0); %Neutrophils 74.7 % (42.0-75.0); Hemoglobin 15.3 g/dL (14.0-18.0); Mean Corpuscular HGB CONC 33.9 g/dL (32.0-36.0); Mean Corpuscular Hemoglobin 30.9 pg (27.0-31.0); Mean Platelet Volume 8.6 fL (7.4-10.4); Platelet Count 220 thou/uL (130-400); RBC Distribution Width 12.9 % (11.5-14.5); Red Blood Cell (RBC) Count 4.95 mill/uL (4.70-6.10); White Blood Cell (WBC) Count 8.3 thou/uL (4.8-10.8)
[2016-09-29] MEDS ORDERED: Lorazepam 2 MG/ML VIAL ONE ×2 (12:06→13:10)
[2016-09-29 12:12] LABS: ALT (SGPT) 29 U/L (8-55); AST (SGOT) 28 U/L (5-34); Albumin 4.2 g/dL (3.5-5.0); Alkaline Phosphatase 58 U/L (40-150); Anion Gap 14 mmol/L (10-20); BUN (Urea Nitrogen) 17 mg/dL (8.4-25.7); Bilirubin, Total 1.1 mg/dL (0.2-1.2); CK (CPK) 897 U/L (30-200); Calc. Creatinine Clearance 0 mL/min (70-130); Calcium 9.7 mg/dL (7.8-10.44); Carbon Dioxide 25 mmol/L (22-29); Chloride 104 mmol/L (98-107); Estimated GFR-MDRD 87; Globulin 3.6 g/dL (2.4-3.5); Glucose 138 mg/dL (70-105); Potassium 3.9 mmol/L (3.5-5.1); Protein, Total 7.8 g/dL (6.0-8.3); Sodium 139 mmol/L (136-145)
[2016-09-29 12:50] LABS: Acetaminophen Less than 6.0 mcg/mL (10.0-30.0); Alcohol Less than 10 mg/dL (Less than 10); Salicylate Less than 8.0 mg/dL (15.0-30.0)
[2016-09-29] MEDS ORDERED: Mag-Al Plus 1200 MG/1200 MG/120 MG/30 ML UDCUP ONE (12:55)
[2016-09-29 13:14] LABS: Blood, Urine Trace (Negative); Clarity Clear (Clear); Glucose, Urine (Dipstick) Negative (Negative); Leukocyte Negative (Negative); Nitrite Negative (Negative); Protein, Urine (Dipstick) Negative (Neg-Trace); Specific Gravity, Urine 1.015 (1.005-1.030)
[2016-09-29 13:23] LABS: Amphetamine Not Detected (NotDetected); Barbiturates Screen Not Detected (NotDetected); Benzodiazepine Screen Detected (NotDetected); Cocaine Metabolite Screen Not Detected (NotDetected); Medtox Control Line Valid? VALID (VALID); Methadone Not Detected (NotDetected); Methamphetamine Not Detected (NotDetected); Opiate Screen Not Detected (NotDetected); Oxycodone Screen Not Detected (NotDetected); Phencyclidine (PCP) Not Detected (NotDetected); THC/Cannabinoid Screen Not Detected (NotDetected); Tricyclic Screen Not Detected (NotDetected)
[2016-09-29 13:24] LABS: Bilirubin Negative (Negative)
[2016-09-29 13:27] LABS: Bacteria/HPF 2+ HPF (None Seen); RBC/HPF 0-3 HPF (0-3); Squamous Epithelial 0-3 HPF (0-3); WBC/HPF 0-3 HPF (0-3)
[2016-09-29] MEDS ORDERED: PROVENTIL INHALER 6.7 G (200 INHALATIONS) INH PRN ×2 (15:22→16:46)
[2016-09-29] MEDS ORDERED: traZODone HCl 50 MG TAB PO PRN (15:23)
[2016-09-29 15:40] VITALS: BMI 41.5
[2016-09-29] MEDS ORDERED: Paliperidone Palmitate [Invega Sustenna] 234 MG IM SCH (17:00)
[2016-09-29] MEDS: Mometasone/Formoterol 60 PUFF AER INH SCH (18:18)
[2016-09-29] MEDS: Budesonide 0.5 MG/2 ML NEB NEB SCH (18:27)
[2016-09-29] MEDS ORDERED: Mometasone/Formoterol 60 PUFF AER INH SCH (19:00)
[2016-09-29] MEDS: Cephalexin 250 MG CAP PO SCH (20:48)
[2016-09-29] MEDS: Tamsulosin HCl 0.4 MG CAP PO SCH (20:49)
[2016-09-29] MEDS: Lorazepam 0.5 MG TAB PO SCH (20:49)
[2016-09-29] MEDS: Montelukast Sodium 10 mg Tablet PO SCH (20:49)
[2016-09-29] MEDS ORDERED: Montelukast Sodium 10 mg Tablet PO SCH (21:00)
[2016-09-29] MEDS ORDERED: Tamsulosin HCl 0.4 MG CAP PO SCH (21:00)
--- NOTE | 2016-09-30 02:38 | HP ---
DATE OF ADMISSION: 09/29/2016 CHIEF COMPLAINT: Generalized weakness. HISTORY OF PRESENT ILLNESS: A 51-year-old male with underlying schizoaffective disorder presented to the [facility] via transfer from EMS secondary to being found down at home and incontinent. The patient was notably physical deconditioned. He has had similar incidences in the past with poor intake and mobility, sustaining from his underlying psychiatric condition leading to admission. Upon evaluation in the emergency department, he was found to have bacteria in his urine; with his other labs, largely being stable other than an elevated creatine kinase at 897. He was previously presented dehydrated, but does not appear to be the case at this point. He has only mild akathisia as compared to prior admissions as well. He has varying degrees of communication skills secondary to his psychiatric condition and at current, he is somewhat suboptimal. It has been decided to admit the patient with skilled care to participate with physical therapy to further improve his generalized weakness. In addition to this, we will monitor his intake and output along with provide treatment for his urinary tract infection. He is conversational at this point, but still somewhat difficult to get a coherent history from. It was discussed with the patient on whether he feels that he ultimately will be able to return home versus potential detention placement secondary to his repeat visits to the emergency department and subsequent admissions. I do not feel he is able to adequately answer this at this time, but we will plan for environmental services lead to help address this with the patient further along with discussion with family members who he currently lives with, notably his mother and brother. PAST MEDICAL HISTORY: Moderate persistent asthma, morbid obesity, schizoaffective disorder, pulmonary embolus, hypertension, and prior history of type 2 diabetes mellitus. PAST SURGICAL HISTORY: Cervical spinal procedures on 10/2012 and lumbar, back procedures as well. SOCIAL HISTORY: Lives with mother and brother, nonsmoker. No known alcohol or illicit drug use. FAMILY HISTORY: Noncontributory. ALLERGIES: BACTRIM, PRADAXA, CLARITHROMYCIN. CURRENT MEDICATIONS: Invega 234 mg intramuscular injection monthly, lorazepam 0.5 mg t.i.d., Proventil q.4 hours p.r.n., Abilify 20 mg p.o. daily, benztropine 1 mg p.o. at bedtime, finasteride 5 mg p.o. daily, lisinopril 5 mg p.o. daily, Advair 1 puff b.i.d., Singulair 10 mg p.o. daily, Xarelto 20 mg p.o. daily, Flomax 0.5 mg p.o. at bedtime, trazodone 50 mg p.o. at bedtime p.r.n. REVIEW OF SYSTEMS: General: Patient denies fever, chills, diaphoresis. Complains of fatigue. Ear, Nose, and Throat: Denies sore throat, nasal drainage, or congestion. Cardiovascular: Denies chest pain or palpitations. Respiratory: Denies cough or shortness of breath. Gastrointestinal: Denies abdominal pain, nausea, vomiting, diarrhea, or constipation. Genitourinary: Frequent urination. Musculoskeletal: Denies joint pain or swelling. Dermatologic: Denies rash. Neuro: Denies headache. LABORATORY DATA: CBC shows some white blood cell count 8.3, H\T\H 15.3 and 45.1. Sodium is 139, potassium 3.9, BUN 17, creatinine 1.08, glucose 138. Lactic acid 0.8. Creatine kinase 897. Urine shows trace blood with 2+ bacteria and ketones present. PHYSICAL EXAMINATION: VITAL SIGNS: Temperature is 98.5, pulse is 84, respiratory rate 24, oxygen is 96% on room air, blood pressure is 113/69. GENERAL: Patient is alert in no acute distress, but does have mild akathisia. He is obese. FACE: No asymmetry. HEAD, EYES, EARS, NOSE, AND THROAT: Conjunctivae are clear. Extraocular muscles are intact bilaterally. No discharge. Moist mucous membranes. NECK: No lymphadenopathy. Supple, no meningeal signs. CARDIOVASCULAR: Regular rate and rhythm. Normal S1, S2. No murmurs, rubs, or gallops. RESPIRATORY: Clear to auscultation bilaterally with no wheezes, rales, or rhonchi. GASTROINTESTINAL: Soft, nontender to palpation, no masses. EXTREMITIES: No clubbing, cyanosis, or edema. SKIN: No rashes. He has a well-healed scar overlying the cervical spine and lumbar spine. NEUROLOGIC: Nonfocal with cranial nerves II through XII are intact. He does respond to commands appropriately. ASSESSMENT AND PLAN: 1. Generalized weakness. We will plan for the patient to participate with skilled care and physical therapy. 2. Urinary tract infection. We will treat with oral keflex and follow up urine culture. 3. Schizoaffective disorder. We will continue his usual medications, Abilify and alprazolam. He did receive his monthly Invega injection 2 days ago. The patient was followed by Psychiatry, Dr. Shannon via telemedicine and getting. She was contacted via [facility] and states that did not feel his current symptoms to be psychiatric related. We will plan for environmental services lead consult to discuss his underlying condition and further with family as well to ascertain on whether would be more beneficial for him to be placed into a long-term care facility to help prevent further admissions of which he has had for catatonic schizophrenia with resultant dehydration and urinary retention. 4. Hypertension. Patient is hemodynamically stable. We will continue DANIKA inhibitor. 5. History of pulmonary emboli. Patient is on life-long anticoagulant therapy. We will continue his Xarelto accordingly. 6. Moderate persistent asthma. We will continue his usual home medications, his respiratory status is currently stable. 7. Prophylaxis. We will provide proton-pump inhibitor and continue on home Xarelto. [facility]
[2016-09-30] MEDS: Mometasone/Formoterol 60 PUFF AER INH SCH ×2 (06:16→18:20)
[2016-09-30] MEDS: Budesonide 0.5 MG/2 ML NEB NEB SCH ×2 (06:17→18:19)
[2016-09-30] MEDS: Cephalexin 250 MG CAP PO SCH ×3 (08:50→21:18)
[2016-09-30] MEDS: Finasteride 5 MG TAB PO SCH (08:50)
[2016-09-30] MEDS: Lisinopril 5 MG TAB PO SCH (08:51)
[2016-09-30] MEDS: Lorazepam 0.5 MG TAB PO SCH ×3 (08:52→21:18)
[2016-09-30] MEDS ORDERED: Aripiprazole 10 MG TAB PO SCH (09:00)
[2016-09-30] MEDS ORDERED: Rivaroxaban 10 MG TAB PO SCH ×2 (09:00)
[2016-09-30] MEDS: Aripiprazole 10 MG TAB PO SCH (09:54)
[2016-09-30] MEDS: Polyethylene Glycol 3350 17 GM Packet PO PRN (11:41)
[2016-09-30] MEDS: Acetaminophen 500 MG TAB PO PRN (11:41)
[2016-09-30] MEDS ORDERED: Haloperidol Lactate 5 MG/ML VIAL ONE (21:09)
[2016-09-30] MEDS: Haloperidol Lactate 5 MG/ML VIAL IM PRN (21:17)
[2016-09-30] MEDS: Montelukast Sodium 10 mg Tablet PO SCH (21:18)
[2016-09-30] MEDS: Tamsulosin HCl 0.4 MG CAP PO SCH (21:18)
[2016-10-01] MEDS: Mometasone/Formoterol 60 PUFF AER INH SCH ×2 (06:18→18:18)
[2016-10-01] MEDS: Budesonide 0.5 MG/2 ML NEB NEB SCH ×2 (06:23→18:24)
[2016-10-01 06:37] LABS: Hemoglobin 14.3 g/dL (14.0-18.0); Platelet Count 182 thou/uL (130-400)
[2016-10-01] MEDS: Lisinopril 5 MG TAB PO SCH (08:20)
[2016-10-01] MEDS: Cephalexin 250 MG CAP PO SCH ×3 (08:22→20:19)
[2016-10-01] MEDS: Lorazepam 0.5 MG TAB PO SCH ×3 (08:23→20:20)
[2016-10-01] MEDS: Finasteride 5 MG TAB PO SCH (08:23)
[2016-10-01] MEDS: Aripiprazole 10 MG TAB PO SCH (08:24)
[2016-10-01] MEDS: Acetaminophen 500 MG TAB PO PRN (12:07)
[2016-10-01] MEDS: Rivaroxaban 10 MG TAB PO SCH (16:57)
[2016-10-01] MEDS: Montelukast Sodium 10 mg Tablet PO SCH (20:19)
[2016-10-01] MEDS: Tamsulosin HCl 0.4 MG CAP PO SCH (20:19)
[2016-10-01] MEDS ORDERED: Haloperidol Lactate 5 MG/ML VIAL ONE (21:35)
[2016-10-01] MEDS: Haloperidol Lactate 5 MG/ML VIAL IM PRN (21:41)
[2016-10-02] MEDS: Mometasone/Formoterol 60 PUFF AER INH SCH ×2 (06:11→18:30)
[2016-10-02] MEDS: Budesonide 0.5 MG/2 ML NEB NEB SCH ×2 (06:11→18:34)
[2016-10-02] MEDS ORDERED: Lorazepam 0.5 MG TAB ONE ×2 (09:19→14:44)
[2016-10-02] MEDS: Lorazepam 0.5 MG TAB PO SCH ×3 (09:22→21:11)
[2016-10-02] MEDS: Finasteride 5 MG TAB PO SCH (09:23)
[2016-10-02] MEDS: Lisinopril 5 MG TAB PO SCH (09:23)
[2016-10-02] MEDS: Cephalexin 250 MG CAP PO SCH ×3 (09:23→21:11)
[2016-10-02] MEDS: Aripiprazole 10 MG TAB PO SCH (09:29)
[2016-10-02] MEDS: Acetaminophen 500 MG TAB PO PRN (09:30)
[2016-10-02] MEDS: Rivaroxaban 10 MG TAB PO SCH (18:33)
[2016-10-02] MEDS: Montelukast Sodium 10 mg Tablet PO SCH (21:10)
[2016-10-02] MEDS: Tamsulosin HCl 0.4 MG CAP PO SCH (21:11)
[2016-10-03] MEDS: Budesonide 0.5 MG/2 ML NEB NEB SCH ×2 (06:05→18:16)
[2016-10-03] MEDS: Mometasone/Formoterol 60 PUFF AER INH SCH ×2 (06:06→18:10)
[2016-10-03] MEDS: Aripiprazole 10 MG TAB PO SCH (08:42)
[2016-10-03] MEDS: Lisinopril 5 MG TAB PO SCH (08:42)
[2016-10-03] MEDS: Cephalexin 250 MG CAP PO SCH ×3 (08:42→20:37)
[2016-10-03] MEDS: Lorazepam 0.5 MG TAB PO SCH ×3 (08:42→20:37)
[2016-10-03] MEDS: Finasteride 5 MG TAB PO SCH (08:43)
[2016-10-03] MEDS: Rivaroxaban 10 MG TAB PO SCH (17:26)
[2016-10-03] MEDS: Tamsulosin HCl 0.4 MG CAP PO SCH (20:37)
[2016-10-03] MEDS: Montelukast Sodium 10 mg Tablet PO SCH (20:37)
[2016-10-04 05:55] VITALS: BP 120/66; TEMP 98.2
[2016-10-04] MEDS: Mometasone/Formoterol 60 PUFF AER INH SCH (06:02)
[2016-10-04] MEDS: Budesonide 0.5 MG/2 ML NEB NEB SCH (06:05)
[2016-10-04] MEDS: Cephalexin 250 MG CAP PO SCH (08:10)
[2016-10-04] MEDS: Lisinopril 5 MG TAB PO SCH (08:11)
[2016-10-04] MEDS: Finasteride 5 MG TAB PO SCH (08:11)
[2016-10-04] MEDS: Lorazepam 0.5 MG TAB PO SCH (08:11)
[2016-10-04] MEDS: Polyethylene Glycol 3350 17 GM Packet PO PRN (08:12)
[2016-10-04] MEDS: Aripiprazole 10 MG TAB PO SCH (08:12)
--- NOTE | 2016-10-04 15:30 | DIS ---
DATE OF ADMISSION: 09/29/2016 DATE OF DISCHARGE: 10/04/2016 ADMISSION DIAGNOSES: Generalized weakness, urinary tract infection, schizoaffective disorder, hypertension, history of pulmonary emboli. DISCHARGE DIAGNOSES: Generalized weakness, urinary tract infection, schizoaffective disorder, hypertension, history of pulmonary emboli with improvement of physical deconditioning and underlying mental health disorder. PROCEDURES: None. HOSPITAL COURSE: A 51-year-old male was brought to the [facility] via EMS after being found down at home and was found to be notably physically deconditioned. He was also noted to be incontinent. He does have underlying schizoaffective disorder with episodes of catatonia with resultant poor intake and social function. He was found to have a urinary tract infection and it was decided to admit for physical deconditioning. During his stay, he was treated for the UTI without issue. Secondarily, he was able to participate with physical therapy and improve his deconditioned state. His mental status also improved with his regularly scheduled psychiatric medications. He was able to converse more readily prior to discharge and there was discussion had between the family and social worker masters regarding potential placement secondary to concern that he may not be able to satisfactorily take care of himself at home; however, he does live with his mother and brother and they refused the transition of patient to a long-term care facility and instead elected for him to return home. They do understand the importance of medication compliance and the need for the patient to remain on his psychiatric medications to function properly. The patient is currently hemodynamically stable, ambulating well at his normal baseline as far as intake and output and is appropriate for discharge at this time. DISPOSITION: The patient will discharge to his home setting and may follow up with myself in the clinic within a week. DISCHARGE MEDICATIONS: New medication is Keflex to be taken for the next couple days 500 mg t.i.d., have also increased lorazepam to 1 mg p.o. t.i.d. as scheduled. He will continue his usual medications which include Proventil inhaler 1 puff q.6 hours p.r.n., Abilify 20 mg p.o. daily, Cogentin 1 mg p.o. at bedtime, Pulmicort nebulizer 0.5 mg b.i.d., finasteride 5 mg p.o. daily, lisinopril 5 mg p.o. daily, Symbicort 2 puffs b.i.d., Singulair 10 mg p.o. daily , Invega 234 mg intramuscular once a month, Protonix 40 mg p.o. daily, Xarelto 20 mg p.o. daily, Flomax 0.4 mg p.o. at bedtime, trazodone 50 mg p.o. at bedtime p.r.n. MTDD
== END 2016-10-04 13:44 | disposition home health service (06) | DRG 690 ==
LOC: BURERS 11:23 → BURMED 14:39
PROVIDERS: ADMIT Family Medicine; ATTEND Family Medicine
DX: N39.0 Urinary tract infection, site not specified (principal); Z68.41 Body mass index [BMI] 40.0-44.9, adult; I10 Essential (primary) hypertension; F20.2 Catatonic schizophrenia; R53.1 Weakness; E66.01 Morbid (severe) obesity due to excess calories; J45.40 Moderate persistent asthma, uncomplicated; Z86.711 Personal history of pulmonary embolism; Z79.01 Long term (current) use of anticoagulants; Z88.1 Allergy status to other antibiotic agents; Z88.8 Allergy status to other drugs, medicaments and biological substances; E86.0 Dehydration
CPT/HCPCS: 36415; 51701; 80053; 80306; 80307; 81003; 81015; 82550; 82565; 83605; 85014; 85018; 85025; 85049; 94640; 94664; 96361; 96372; 96374; 96376; A4216; G8987-GO-CL; G8988-GO-CJ; J1630; J2060; J7626

== ENCOUNTER 2016-11-15 16:21 | Emergency (ER) | payer MEDICARE, MEDICAID ==
[2016-11-15 17:32] LABS: Bilirubin Negative (Negative); Blood, Urine Negative (Negative); Clarity Clear (Clear); Glucose, Urine (Dipstick) Negative (Negative); Leukocyte Negative (Negative); Nitrite Negative (Negative); Protein, Urine (Dipstick) Negative (Neg-Trace)
[2016-11-15 17:36] LABS: #Basophils 0.1 thou/uL (0.0-0.2); #Eosinphils 0.2 thou/uL (0.0-0.7); #Lymphocytes 1.1 thou/uL (1.20-3.40); #Monocytes 0.5 thou/uL (0.11-0.59); #Neutrophils 2.9 thou/uL (1.40-6.50); %Basophils 1.6 % (0.0-1.0); %Eosinophils 3.3 % (0.0-10.0); %Lymphocytes 23.8 % (21.0-51.0); %Monocytes 10.5 % (0.0-10.0); %Neutrophils 60.8 % (42.0-75.0); Hemoglobin 13.5 g/dL (14.0-18.0); Mean Corpuscular HGB CONC 32.2 g/dL (32.0-36.0); Mean Corpuscular Hemoglobin 29.5 pg (27.0-31.0); Mean Corpuscular Volume 91.6 fl (80.0-94.0); Mean Platelet Volume 7.4 fL (7.4-10.4); Platelet Count 183 thou/uL (130-400); RBC Distribution Width 13.9 % (11.5-14.5); Red Blood Cell (RBC) Count 4.57 mill/uL (4.70-6.10); White Blood Cell (WBC) Count 4.8 thou/uL (4.8-10.8)
[2016-11-15 17:46] LABS: ALT (SGPT) 30 U/L (8-55); AST (SGOT) 22 U/L (5-34); Albumin 3.8 g/dL (3.5-5.0); Alkaline Phosphatase 62 U/L (40-150); Anion Gap 12 mmol/L (10-20); BUN (Urea Nitrogen) 17 mg/dL (8.4-25.7); Bilirubin, Total 0.6 mg/dL (0.2-1.2); Calc. Creatinine Clearance 0 mL/min (70-130); Calcium 9.1 mg/dL (7.8-10.44); Carbon Dioxide 27 mmol/L (22-29); Chloride 105 mmol/L (98-107); Estimated GFR-MDRD Greater than 90; Globulin 3.1 g/dL (2.4-3.5); Glucose 93 mg/dL (70-105); Lipase 31 U/L (8-78); Protein, Total 6.9 g/dL (6.0-8.3); Sodium 140 mmol/L (136-145)
== END 2016-11-15 17:56 | disposition home or self-care (01) ==
LOC: BURERS 16:21
DX: M54.5 Low back pain (principal); K21.9 Gastro-esophageal reflux disease without esophagitis; I10 Essential (primary) hypertension; J45.909 Unspecified asthma, uncomplicated; E11.9 Type 2 diabetes mellitus without complications; F20.9 Schizophrenia, unspecified; F31.9 Bipolar disorder, unspecified; Z86.711 Personal history of pulmonary embolism
CPT/HCPCS: 36416; 80053; 81003; 83690; 85025; 96372; J2270

== ENCOUNTER 2017-01-25 15:30 | Emergency (ER) | payer MEDICARE, MEDICAID ==
[2017-01-25 15:59] LABS: pH (venous) 7.46 (7.35-7.45)
[2017-01-25 16:00] LABS: Base Excess -2.1 mEq/L (-2 - +2)
[2017-01-25 16:01] LABS: Hemoglobin (Hb) 18.8 g/dL (13.1-17.2)
[2017-01-25 16:07] LABS: #Basophils 0.1 thou/uL (0.0-0.2); #Eosinphils 0.2 thou/uL (0.0-0.7); #Lymphocytes 2.2 thou/uL (1.20-3.40); #Monocytes 0.5 thou/uL (0.11-0.59); #Neutrophils 2.9 thou/uL (1.40-6.50); %Basophils 1.3 % (0.0-1.0); %Lymphocytes 37.2 % (21.0-51.0); %Monocytes 8.1 % (0.0-10.0); %Neutrophils 50.5 % (42.0-75.0); Acetaminophen Less than 6.0 mcg/mL (10.0-30.0); Alcohol Less than 10 mg/dL (Less than 10); Hemoglobin 15.3 g/dL (14.0-18.0); Mean Corpuscular HGB CONC 32.7 g/dL (32.0-36.0); Mean Corpuscular Hemoglobin 29.4 pg (27.0-31.0); Mean Corpuscular Volume 89.9 fl (80.0-94.0); Mean Platelet Volume 8.3 fL (7.4-10.4); Platelet Count 164 thou/uL (130-400); RBC Distribution Width 13.1 % (11.5-14.5); Salicylate Less than 8.0 mg/dL (15.0-30.0); White Blood Cell (WBC) Count 5.8 thou/uL (4.8-10.8)
[2017-01-25 16:09] LABS: ALT (SGPT) 34 U/L (8-55); AST (SGOT) 36 U/L (5-34); Albumin 4.1 g/dL (3.5-5.0); Alkaline Phosphatase 61 U/L (40-150); Anion Gap 17 mmol/L (10-20); BUN (Urea Nitrogen) 15 mg/dL (8.4-25.7); Bilirubin, Total 1.4 mg/dL (0.2-1.2); Calc. Creatinine Clearance 0 mL/min (70-130); Calcium 9.4 mg/dL (7.8-10.44); Carbon Dioxide 21 mmol/L (22-29); Chloride 103 mmol/L (98-107); Estimated GFR-MDRD 85; Globulin 3.7 g/dL (2.4-3.5); Glucose 101 mg/dL (70-105); Potassium 4.1 mmol/L (3.5-5.1); Protein, Total 7.8 g/dL (6.0-8.3); Sodium 137 mmol/L (136-145)
[2017-01-25] MEDS ORDERED: Lorazepam 2 MG/ML VIAL ONE ×2 (16:09→17:07)
[2017-01-25 16:14] LABS: CKMB 3.9 ng/mL (0-6.6); Troponin I Less than 0.010 ng/mL (< 0.028)
[2017-01-25 16:17] LABS: Bilirubin Small (Negative); Blood, Urine Negative (Negative); Clarity Clear (Clear); Glucose, Urine (Dipstick) Negative (Negative); Leukocyte Negative (Negative); Nitrite Negative (Negative); Protein, Urine (Dipstick) Negative (Neg-Trace)
[2017-01-25 16:25] LABS: Amphetamine Not Detected (NotDetected); Barbiturates Screen Not Detected (NotDetected); Benzodiazepine Screen Detected (NotDetected); Cocaine Metabolite Screen Not Detected (NotDetected); Methadone Not Detected (NotDetected); Methamphetamine Not Detected (NotDetected); Opiate Screen Detected (NotDetected); Oxycodone Screen Not Detected (NotDetected); Phencyclidine (PCP) Not Detected (NotDetected); THC/Cannabinoid Screen Not Detected (NotDetected); Tricyclic Screen Not Detected (NotDetected)
[2017-01-25 16:26] LABS: Medtox Control Line Valid? VALID (VALID)
== END 2017-01-25 19:15 | disposition home or self-care (01) ==
LOC: BURERS 15:30
DX: R06.4 Hyperventilation (principal); K21.9 Gastro-esophageal reflux disease without esophagitis; I10 Essential (primary) hypertension; J45.909 Unspecified asthma, uncomplicated; Z86.711 Personal history of pulmonary embolism; E11.9 Type 2 diabetes mellitus without complications; F31.9 Bipolar disorder, unspecified; F20.9 Schizophrenia, unspecified
CPT/HCPCS: 51701; 80053; 80306; 80307; 81003; 82553; 82805; 83880; 84443; 84484; 85025; 85379; 96361; 96374; 96376; J2060

== ENCOUNTER 2017-03-29 14:46 | Emergency (ER) | payer MEDICARE, MEDICAID ==
[2017-03-29] MEDS ORDERED: traMADol HCl 50 MG TAB ONE (15:35)
[2017-03-29 15:38] LABS: #Neutrophils 3.3 thou/uL (1.40-6.50); %Basophils 1.3 % (0.0-1.0); %Eosinophils 3.9 % (0.0-10.0); %Lymphocytes 33.9 % (21.0-51.0); %Monocytes 9.5 % (0.0-10.0); %Neutrophils 51.3 % (42.0-75.0); Hemoglobin 14.4 g/dL (14.0-18.0); Manual Diff?? YES; Mean Corpuscular HGB CONC 32.7 g/dL (32.0-36.0); Mean Corpuscular Hemoglobin 30.3 pg (27.0-31.0); Mean Corpuscular Volume 92.9 fL (80.0-94.0); Mean Platelet Volume 8.5 fL (7.4-10.4); Platelet Count 206 thou/uL (130-400); RBC Distribution Width 13.7 % (11.5-14.5); Red Blood Cell (RBC) Count 4.74 mill/uL (4.70-6.10); White Blood Cell (WBC) Count 6.5 thou/uL (4.8-10.8)
[2017-03-29 15:39] LABS: #Basophils 0.1 thou/uL (0.0-0.2); #Eosinphils 0.3 thou/uL (0.0-0.7); #Monocytes 0.6 thou/uL (0.11-0.59); MDiff Complete? YES
[2017-03-29 15:49] LABS: Anion Gap 15 mmol/L (10-20); BUN (Urea Nitrogen) 15 mg/dL (8.4-25.7); Calc. Creatinine Clearance 0 mL/min (70-130); Calcium 9.1 mg/dL (7.8-10.44); Carbon Dioxide 24 mmol/L (22-29); Chloride 104 mmol/L (98-107); Estimated GFR-MDRD Greater than 90; Glucose 97 mg/dL (70-105); Potassium 4.2 mmol/L (3.5-5.1); Sodium 139 mmol/L (136-145)
== END 2017-03-29 16:09 | disposition home or self-care (01) ==
LOC: BURERS 14:46
DX: M71.21 Synovial cyst of popliteal space [Baker], right knee (principal); K21.9 Gastro-esophageal reflux disease without esophagitis; I10 Essential (primary) hypertension; J45.909 Unspecified asthma, uncomplicated; E11.9 Type 2 diabetes mellitus without complications; F31.9 Bipolar disorder, unspecified; F20.9 Schizophrenia, unspecified; Z79.01 Long term (current) use of anticoagulants; Z79.899 Other long term (current) drug therapy; Z86.711 Personal history of pulmonary embolism
CPT/HCPCS: 80048; 84550; 85025; 85379; 99283

== ENCOUNTER 2017-07-21 18:29 | Emergency (ER) | payer MEDICARE, MEDICAID ==
[2017-07-21 19:13] LABS: #Basophils 0.1 thou/uL (0.0-0.2); #Eosinphils 0.2 thou/uL (0.0-0.7); #Monocytes 0.5 thou/uL (0.11-0.59); #Neutrophils 2.4 thou/uL (1.40-6.50); %Basophils 1.4 % (0.0-1.0); %Eosinophils 3.9 % (0.0-10.0); %Lymphocytes 39.1 % (21.0-51.0); %Monocytes 9.4 % (0.0-10.0); %Neutrophils 46.3 % (42.0-75.0); Hemoglobin 13.3 g/dL (14.0-18.0); Mean Corpuscular HGB CONC 33.7 g/dL (32.0-36.0); Mean Corpuscular Hemoglobin 28.5 pg (27.0-31.0); Mean Corpuscular Volume 84.5 fl (80.0-94.0); Mean Platelet Volume 6.9 fL (7.4-10.4); Platelet Count 160 thou/uL (130-400); RBC Distribution Width 12.9 % (11.5-14.5); Red Blood Cell (RBC) Count 4.68 mill/uL (4.70-6.10); White Blood Cell (WBC) Count 5.1 thou/uL (4.8-10.8)
[2017-07-21 19:21] LABS: Bilirubin Negative (Negative); Blood, Urine Negative (Negative); Clarity Clear (Clear); Glucose, Urine (Dipstick) Negative (Negative); Leukocyte Negative (Negative); Nitrite Negative (Negative); Protein, Urine (Dipstick) Negative (Neg-Trace); Urobilinogen 0.2 mg/dL (0.2-1.0)
[2017-07-21 19:33] LABS: ALT (SGPT) 27 U/L (8-55); AST (SGOT) 20 U/L (5-34); Alkaline Phosphatase 55 U/L (40-150); Anion Gap 13 mmol/L (10-20); BUN (Urea Nitrogen) 16 mg/dL (8.4-25.7); Bilirubin, Total 0.5 mg/dL (0.2-1.2); Calc. Creatinine Clearance 0 mL/min (70-130); Calcium 9.1 mg/dL (7.8-10.44); Carbon Dioxide 24 mmol/L (22-29); Chloride 106 mmol/L (98-107); Estimated GFR-MDRD 73; Globulin 2.8 g/dL (2.4-3.5); Glucose 99 mg/dL (70-105); Lipase 27 U/L (8-78); Potassium 3.8 mmol/L (3.5-5.1); Protein, Total 6.8 g/dL (6.0-8.3); Sodium 139 mmol/L (136-145)
[2017-07-21] MEDS ORDERED: Ibuprofen 200 MG TAB ONE (19:51)
== END 2017-07-21 19:40 | disposition home or self-care (01) ==
LOC: BURERS 18:29
DX: M54.5 Low back pain (principal); I10 Essential (primary) hypertension; K21.9 Gastro-esophageal reflux disease without esophagitis; J45.909 Unspecified asthma, uncomplicated; E11.9 Type 2 diabetes mellitus without complications; F31.9 Bipolar disorder, unspecified; F20.9 Schizophrenia, unspecified; Z86.711 Personal history of pulmonary embolism; Z79.899 Other long term (current) drug therapy; Z79.01 Long term (current) use of anticoagulants
CPT/HCPCS: 80053; 81003; 83690; 85025; 99283

== ENCOUNTER 2017-08-05 13:14 | Emergency (ER) | payer MEDICARE, MEDICAID ==
[2017-08-05 13:39] LABS: #Basophils 0.1 thou/uL (0.0-0.2); #Eosinphils 0.2 thou/uL (0.0-0.7); #Lymphocytes 1.5 thou/uL (1.20-3.40); #Monocytes 0.4 thou/uL (0.11-0.59); #Neutrophils 3.2 thou/uL (1.40-6.50); %Basophils 1.5 % (0.0-1.0); %Eosinophils 2.9 % (0.0-10.0); %Lymphocytes 28.3 % (21.0-51.0); %Monocytes 7.1 % (0.0-10.0); %Neutrophils 60.3 % (42.0-75.0); Mean Corpuscular HGB CONC 34.9 g/dL (32.0-36.0); Mean Corpuscular Hemoglobin 29.1 pg (27.0-31.0); Mean Corpuscular Volume 83.3 fL (78.0-98.0); Mean Platelet Volume 7.1 fL (7.4-10.4); Platelet Count 153 thou/uL (130-400); RBC Distribution Width 12.8 % (11.5-14.5); White Blood Cell (WBC) Count 5.4 thou/uL (4.8-10.8)
[2017-08-05 13:53] LABS: ALT (SGPT) 25 U/L (8-55); AST (SGOT) 22 U/L (5-34); Albumin 4.1 g/dL (3.5-5.0); Alkaline Phosphatase 49 U/L (40-150); Anion Gap 14 mmol/L (10-20); BUN (Urea Nitrogen) 15 mg/dL (8.4-25.7); Bilirubin, Total 0.9 mg/dL (0.2-1.2); Calc. Creatinine Clearance 0 mL/min (70-130); Calcium 9.3 mg/dL (7.8-10.44); Carbon Dioxide 24 mmol/L (22-29); Chloride 105 mmol/L (98-107); Estimated GFR-MDRD 90; Glucose 106 mg/dL (70-105); Potassium 3.8 mmol/L (3.5-5.1); Protein, Total 7.1 g/dL (6.0-8.3); Sodium 139 mmol/L (136-145)
[2017-08-05 13:56] LABS: CKMB 2.7 ng/mL (0-6.6); Troponin I Less than 0.010 ng/mL (< 0.028)
[2017-08-05 14:06] LABS: Clarity Clear (Clear)
[2017-08-05 14:07] LABS: Bilirubin Negative (Negative); Blood, Urine Negative (Negative); Glucose, Urine (Dipstick) Negative (Negative); Leukocyte Negative (Negative); Nitrite Negative (Negative); Protein, Urine (Dipstick) Negative (Neg-Trace); pH, Urine 5.5 (5.0-9.0)
--- NOTE | 2017-08-05 15:09 | RAD ---
CHEST 2 VIEWS: Date: 08/05/17 Comparison is made with an 09/21/16 study. FINDINGS: Sensitivity is somewhat reduced by the soft tissues. The heart is normal in size. The mediastinum appears normal. No acute infiltrate, effusion, or other significant lung pathology was found. The lateral view, in particular, is of very low sensitivity due to the soft tissues. Any disease on this view would be easily missed. IMPRESSION: No acute findings. POS: HOME
== END 2017-08-05 15:05 | disposition home or self-care (01) ==
LOC: BURERS 13:14
DX: R06.02 Shortness of breath (principal); M54.5 Low back pain; K21.9 Gastro-esophageal reflux disease without esophagitis; I10 Essential (primary) hypertension; J45.909 Unspecified asthma, uncomplicated; F31.9 Bipolar disorder, unspecified; F20.9 Schizophrenia, unspecified; Z86.711 Personal history of pulmonary embolism
CPT/HCPCS: 36415; 71046; 80053; 81003; 82553; 84484; 85025; 93005

== ENCOUNTER 2017-08-09 10:02 | Emergency (ER) | payer MEDICARE, MEDICAID ==
[2017-08-09] MEDS ORDERED: Prochlorperazine 10 MG/2 ML VIAL ONE (10:20)
[2017-08-09] MEDS ORDERED: diphenhydrAMINE 50 MG/ML VIAL ONE (10:20)
[2017-08-09] MEDS ORDERED: Ondansetron HCl/PF 4 MG/2 ML Vial ONE (10:20)
[2017-08-09 10:53] LABS: Base Excess 3.6 mEq/L (-2.0 to +3.0); pH (venous) 7.48 (7.32-7.43)
[2017-08-09 10:54] LABS: Hemoglobin (Hb) 15.2 g/dL (13.1-17.2)
[2017-08-09 11:00] LABS: #Basophils 0.1 thou/uL (0.0-0.2); #Lymphocytes 1.4 thou/uL (1.20-3.40); #Monocytes 0.5 thou/uL (0.11-0.59); #Neutrophils 5.5 thou/uL (1.40-6.50); %Basophils 1.7 % (0.0-1.0); %Eosinophils 0.3 % (0.0-10.0); %Lymphocytes 17.9 % (21.0-51.0); %Monocytes 6.7 % (0.0-10.0); %Neutrophils 73.4 % (42.0-75.0); Hemoglobin 14.3 g/dL (14.0-18.0); Mean Corpuscular HGB CONC 34.5 g/dL (32.0-36.0); Mean Corpuscular Hemoglobin 28.4 pg (27.0-31.0); Mean Corpuscular Volume 82.3 fL (78.0-98.0); Mean Platelet Volume 6.8 fL (7.4-10.4); Platelet Count 185 thou/uL (130-400); RBC Distribution Width 12.1 % (11.5-14.5); Red Blood Cell (RBC) Count 5.01 mill/uL (4.70-6.10); White Blood Cell (WBC) Count 7.6 thou/uL (4.8-10.8)
[2017-08-09 11:05] LABS: ALT (SGPT) 20 U/L (8-55); AST (SGOT) 14 U/L (5-34); Alkaline Phosphatase 53 U/L (40-150); Anion Gap 14 mmol/L (10-20); BUN (Urea Nitrogen) 13 mg/dL (8.4-25.7); Bilirubin, Total 0.9 mg/dL (0.2-1.2); Calc. Creatinine Clearance 0 mL/min (70-130); Calcium 9.2 mg/dL (7.8-10.44); Carbon Dioxide 27 mmol/L (22-29); Chloride 101 mmol/L (98-107); Estimated GFR-MDRD 80; Globulin 2.9 g/dL (2.4-3.5); Glucose 139 mg/dL (70-105); Lipase 21 U/L (8-78); Potassium 3.7 mmol/L (3.5-5.1); Protein, Total 6.9 g/dL (6.0-8.3); Sodium 138 mmol/L (136-145)
[2017-08-09 11:06] LABS: CKMB 0.7 ng/mL (0-6.6); Troponin I Less than 0.010 ng/mL (< 0.028)
[2017-08-09 13:15] LABS: Bilirubin Small (Negative); Blood, Urine Negative (Negative); Clarity Clear (Clear); Glucose, Urine (Dipstick) Negative (Negative); Leukocyte Negative (Negative); Nitrite Negative (Negative); Protein, Urine (Dipstick) 30 mg/dL (Neg-Trace); RBC/HPF 0-3 HPF (0-3)
[2017-08-09 13:16] LABS: Bacteria/HPF 1+ HPF (None Seen); Squamous Epithelial 0-3 HPF (0-3); WBC/HPF 0-3 HPF (0-3)
--- NOTE | 2017-08-09 20:57 | RAD ---
PORTABLE CHEST: 08/09/17 An AP portable film at 1027 is compared with a 08/05/17 study. The heart is normal in size. There is no vascular congestion, edema, or pleural effusion. The lungs a re clear and the trachea is midline. IMPRESSION: No acute thoracic finding. POS: HOME
--- NOTE | 2017-08-09 21:02 | RAD ---
ABDOMEN 08/09/17 Supine and erect views show no free air beneath the diaphragm. The abdominal gas pattern is unremarka ble. showing no dilated loops to suggest obstruction. No free air was seen. Clips are noted in the ri ght upper quadrant from a prior operative procedure. Prior laminectomies are seen at the L4 through S 1 levels. No calcifications of concern were noted. A tiny calcification in the pelvis on the right is most likely a phlebolith. IMPRESSION: No significant finding. POS: HOME
== END 2017-08-09 13:00 | disposition home or self-care (01) ==
LOC: BURERS 10:02
DX: R11.2 Nausea with vomiting, unspecified (principal); E11.9 Type 2 diabetes mellitus without complications; F41.9 Anxiety disorder, unspecified; F20.9 Schizophrenia, unspecified; I10 Essential (primary) hypertension; J45.909 Unspecified asthma, uncomplicated; K21.9 Gastro-esophageal reflux disease without esophagitis; Z79.899 Other long term (current) drug therapy
CPT/HCPCS: 36415; 36416; 71045; 74019; 80053; 81003; 81015; 82553; 82805; 83605; 83690; 84484; 85025; 93005; 96374; 96375; J0780; J1200; J2405

== ENCOUNTER 2017-09-21 03:40 | Emergency (ER) | payer MEDICARE, MEDICAID ==
[2017-09-21] MEDS ORDERED: traMADol HCl 50 MG TAB ONE (04:03)
[2017-09-21] MEDS ORDERED: Ketorolac Tromethamine 30 MG/ML VIAL ONE (04:04)
== END 2017-09-21 04:05 | disposition home or self-care (01) ==
LOC: BURERS 03:40
DX: G89.29 Other chronic pain (principal); M54.5 Low back pain; K21.9 Gastro-esophageal reflux disease without esophagitis; I10 Essential (primary) hypertension; J45.909 Unspecified asthma, uncomplicated; E11.9 Type 2 diabetes mellitus without complications; F31.9 Bipolar disorder, unspecified; F20.9 Schizophrenia, unspecified; Z79.899 Other long term (current) drug therapy; Z79.01 Long term (current) use of anticoagulants
CPT/HCPCS: 96372; J1885

== ENCOUNTER 2017-12-26 14:04 | Emergency (ER) | payer MEDICARE, MEDICAID ==
[2017-12-26] MEDS ORDERED: traMADol HCl 50 MG TAB ONE (14:41)
[2017-12-26] MEDS ORDERED: Ketorolac Tromethamine 30 MG/ML VIAL ONE (14:41)
== END 2017-12-26 14:48 | disposition home or self-care (01) ==
LOC: BURERS 14:04
DX: M54.42 Lumbago with sciatica, left side (principal); G89.29 Other chronic pain; J45.909 Unspecified asthma, uncomplicated; E11.9 Type 2 diabetes mellitus without complications; Z86.711 Personal history of pulmonary embolism; F31.9 Bipolar disorder, unspecified; Z79.01 Long term (current) use of anticoagulants; Z79.899 Other long term (current) drug therapy
CPT/HCPCS: 96372; J1885

== ENCOUNTER 2018-02-27 11:04 | Emergency (ER) | payer MEDICARE, MEDICAID | END 2018-02-27 11:40 | disposition home or self-care (01) | LOC: BURERS 11:04 | DX: G89.29 Other chronic pain (principal); M25.561 Pain in right knee; M25.511 Pain in right shoulder; M79.604 Pain in right leg; K21.9 Gastro-esophageal reflux disease without esophagitis; I10 Essential (primary) hypertension; J45.909 Unspecified asthma, uncomplicated; Z86.711 Personal history of pulmonary embolism; E11.9 Type 2 diabetes mellitus without complications; F31.9 Bipolar disorder, unspecified; F20.9 Schizophrenia, unspecified | CPT/HCPCS: 99281 ==

== ENCOUNTER 2018-03-09 09:39 | Emergency (ER) | payer MEDICARE, MEDICAID ==
[2018-03-09] MEDS ORDERED: traMADol HCl 50 MG TAB ONE (10:08)
== END 2018-03-09 10:12 | disposition home or self-care (01) ==
LOC: BURERS 09:39
DX: M54.5 Low back pain (principal); K21.9 Gastro-esophageal reflux disease without esophagitis; I10 Essential (primary) hypertension; J45.909 Unspecified asthma, uncomplicated; Z86.711 Personal history of pulmonary embolism; E11.9 Type 2 diabetes mellitus without complications; F31.9 Bipolar disorder, unspecified
CPT/HCPCS: 99283

== ENCOUNTER 2018-03-22 12:30 | Emergency (ER) | payer MEDICARE, MEDICAID | END 2018-03-22 13:30 | disposition home or self-care (01) | LOC: BURERS 12:30 | DX: G89.29 Other chronic pain (principal); M25.561 Pain in right knee; M54.5 Low back pain; K21.9 Gastro-esophageal reflux disease without esophagitis; I10 Essential (primary) hypertension; J45.909 Unspecified asthma, uncomplicated; Z86.711 Personal history of pulmonary embolism; E11.9 Type 2 diabetes mellitus without complications; F31.9 Bipolar disorder, unspecified; F20.9 Schizophrenia, unspecified; Z79.899 Other long term (current) drug therapy | CPT/HCPCS: 99281 ==

== ENCOUNTER → 2018-07-06 | Emergency (ER) | payer MEDICARE, MEDICAID ==
[~2018-07-06] MED LIST: Acetaminophen 325 MG TAB ONE
== END ==
LOC: BURERS 17:17
DX: G89.29 Other chronic pain (principal); M54.5 Low back pain; K21.9 Gastro-esophageal reflux disease without esophagitis; I10 Essential (primary) hypertension; E11.9 Type 2 diabetes mellitus without complications; J45.909 Unspecified asthma, uncomplicated; Z86.11 Personal history of tuberculosis; F31.9 Bipolar disorder, unspecified; F20.9 Schizophrenia, unspecified
CPT/HCPCS: 99283

== ENCOUNTER 2018-08-25 17:25 | Emergency (ER) | payer MEDICARE, MEDICAID ==
[2018-08-25 19:13] LABS: Bilirubin Negative (Negative); Blood, Urine Negative (Negative); Clarity Slightly Cloudy (Clear); Glucose, Urine (Dipstick) Negative (Negative); Leukocyte Negative (Negative); Nitrite Negative (Negative); Protein, Urine (Dipstick) Negative (Neg-Trace); Urobilinogen 0.2 mg/dL (Less than 2)
== END 2018-08-25 19:50 | disposition home or self-care (01) ==
LOC: BURERS 17:25
DX: M54.5 Low back pain (principal); G89.29 Other chronic pain; F31.9 Bipolar disorder, unspecified; F20.9 Schizophrenia, unspecified; K21.9 Gastro-esophageal reflux disease without esophagitis; I10 Essential (primary) hypertension; E11.9 Type 2 diabetes mellitus without complications; J45.909 Unspecified asthma, uncomplicated; Z86.711 Personal history of pulmonary embolism
CPT/HCPCS: 81003; 99283

== ENCOUNTER → 2018-12-25 | Emergency (ER) | payer MEDICAID, MEDICARE | LOC: BURERS 11:50 | DX: R53.1 Weakness (principal); I10 Essential (primary) hypertension; K21.9 Gastro-esophageal reflux disease without esophagitis; J45.909 Unspecified asthma, uncomplicated; E11.9 Type 2 diabetes mellitus without complications; F31.9 Bipolar disorder, unspecified; F20.9 Schizophrenia, unspecified; Z79.899 Other long term (current) drug therapy; Z79.01 Long term (current) use of anticoagulants | CPT/HCPCS: 99281 ==

== ENCOUNTER 2019-01-13 17:43 | Emergency (ER) | payer MEDICARE ==
[2019-01-13] MEDS ORDERED: Ketorolac Tromethamine 30 MG/ML VIAL ONE (18:12)
--- NOTE | 2019-01-13 18:52 | RAD ---
RADIOGRAPH RIGHT HIP 2VIEWS: DATE: 01/13/2019 HISTORY: 53-year-old male with right hip pain FINDINGS: There is no dislocation. No fracture is identified. Femoral head contour normal. No high-grade hip ace int space narrowing. Mild to moderate bony hypertrophy of acetabular roof. Tiny subcapital osteophytes. IMPRESSION: 1. No fracture. 2. Mild osteoarthrosis of right hip.
== END 2019-01-13 18:35 | disposition home or self-care (01) ==
LOC: BURERS 17:43
DX: M25.551 Pain in right hip (principal); K21.9 Gastro-esophageal reflux disease without esophagitis; I10 Essential (primary) hypertension; F20.9 Schizophrenia, unspecified; E11.9 Type 2 diabetes mellitus without complications; J45.909 Unspecified asthma, uncomplicated; Z86.711 Personal history of pulmonary embolism
CPT/HCPCS: 96374; J1885

== ENCOUNTER 2019-03-14 15:07 | Emergency (ER) | payer MEDICARE ==
[2019-03-14] MEDS ORDERED: predniSONE 20 MG TAB ONE (15:30)
[2019-03-14] MEDS ORDERED: Albuterol Sulfate 2.5 mg/0.5 ml Neb ONE (18:17)
== END 2019-03-14 15:34 | disposition home or self-care (01) ==
LOC: BURERS 15:07
DX: M54.41 Lumbago with sciatica, right side (principal); K21.9 Gastro-esophageal reflux disease without esophagitis; I10 Essential (primary) hypertension; J45.909 Unspecified asthma, uncomplicated; E11.9 Type 2 diabetes mellitus without complications; F31.9 Bipolar disorder, unspecified; F20.9 Schizophrenia, unspecified; Z86.711 Personal history of pulmonary embolism
CPT/HCPCS: 99283; J7512; J7611

== ENCOUNTER 2019-04-15 20:23 | Emergency (ER) | payer MEDICARE ==
[2019-04-15 21:10] LABS: Bilirubin Negative (Negative); Blood, Urine Trace (Negative); Clarity Cloudy (Clear); Glucose, Urine (Dipstick) Negative (Negative); Leukocyte Large (Negative); Nitrite Negative (Negative); Protein, Urine (Dipstick) Trace mg/dL (Neg-Trace)
[2019-04-15 21:17] LABS: Amphetamine Not Detected (NotDetected); Barbiturates Screen Not Detected (NotDetected); Benzodiazepine Screen Not Detected (NotDetected); Cocaine Metabolite Screen Not Detected (NotDetected); Medtox Control Line Valid? VALID (VALID); Methadone Not Detected (NotDetected); Methamphetamine Not Detected (NotDetected); Opiate Screen Not Detected (NotDetected); Oxycodone Screen Not Detected (NotDetected); Phencyclidine (PCP) Not Detected (NotDetected); THC/Cannabinoid Screen Not Detected (NotDetected); Tricyclic Screen Not Detected (NotDetected)
[2019-04-15 21:22] LABS: #Basophils 0.1 thou/uL (0.0-0.2); #Eosinphils 0.2 thou/uL (0.0-0.7); #Lymphocytes 1.4 thou/uL (1.20-3.40); #Monocytes 0.5 thou/uL (0.11-0.59); #Neutrophils 3.5 thou/uL (1.40-6.50); %Basophils 1.1 % (0.0-1.0); %Eosinophils 2.9 % (0.0-10.0); %Lymphocytes 25.4 % (21.0-51.0); %Monocytes 8.2 % (0.0-10.0); %Neutrophils 62.4 % (42.0-75.0); Hemoglobin 14.2 g/dL (14.0-18.0); Mean Corpuscular HGB CONC 31.4 g/dL (32.0-36.0); Mean Corpuscular Hemoglobin 28.5 pg (27.0-31.0); Mean Corpuscular Volume 90.5 fL (78.0-98.0); Mean Platelet Volume 8.7 fL (7.4-10.4); Platelet Count 157 thou/uL (130-400); RBC Distribution Width 14.2 % (11.5-14.5); White Blood Cell (WBC) Count 5.6 thou/uL (4.8-10.8)
[2019-04-15 21:24] LABS: Bacteria/HPF 2+ HPF (None Seen); RBC/HPF 0-3 HPF (0-3); WBC/HPF Greater Than 50 HPF (0-3)
[2019-04-15 21:33] LABS: Acetaminophen Less than 6.0 mcg/mL (10.0-30.0); Alcohol Less than 10 mg/dL (Less than 10); Salicylate Less than 8.0 mg/dL (15.0-30.0)
[2019-04-15] MEDS ORDERED: Ciprofloxacin 500 MG TAB ONE (21:33)
[2019-04-15 21:35] LABS: ALT (SGPT) 27 U/L (8-55); AST (SGOT) 26 U/L (5-34); Albumin 4.5 g/dL (3.5-5.0); Alkaline Phosphatase 77 U/L (40-110); Anion Gap 15 mmol/L (10-20); BUN (Urea Nitrogen) 15 mg/dL (8.4-25.7); Bilirubin, Total 1.1 mg/dL (0.2-1.2); Calc. Creatinine Clearance 0 mL/min (70-130); Calcium 9.5 mg/dL (7.8-10.44); Carbon Dioxide 23 mmol/L (22-29); Chloride 107 mmol/L (98-107); Estimated GFR-MDRD 78; Globulin 3.4 g/dL (2.4-3.5); Glucose 120 mg/dL (70-105); Potassium 3.9 mmol/L (3.5-5.1); Protein, Total 7.9 g/dL (6.0-8.3); Sodium 141 mmol/L (136-145)
== END 2019-04-16 01:20 | disposition home or self-care (01) ==
LOC: BURERS 20:23
DX: F20.9 Schizophrenia, unspecified (principal); N39.0 Urinary tract infection, site not specified; I10 Essential (primary) hypertension; E11.9 Type 2 diabetes mellitus without complications; K21.9 Gastro-esophageal reflux disease without esophagitis; F31.9 Bipolar disorder, unspecified; Z86.711 Personal history of pulmonary embolism; Z91.19 Patient's noncompliance with other medical treatment and regimen
CPT/HCPCS: 80053; 80306; 80307; 81003; 81015; 83605; 84443; 85025; 87077; 87086; 87186; 94760

== ENCOUNTER 2019-04-18 09:44 | Emergency (ER) | payer MEDICARE ==
[2019-04-18 10:47] LABS: #Basophils 0.1 thou/uL (0.0-0.2); #Eosinphils 0.2 thou/uL (0.0-0.7); #Lymphocytes 1.8 thou/uL (1.20-3.40); #Monocytes 0.8 thou/uL (0.11-0.59); #Neutrophils 4.4 thou/uL (1.40-6.50); %Basophils 1.5 % (0.0-1.0); %Eosinophils 3.2 % (0.0-10.0); %Lymphocytes 24.7 % (21.0-51.0); %Monocytes 10.2 % (0.0-10.0); %Neutrophils 60.4 % (42.0-75.0); Hemoglobin 14.4 g/dL (14.0-18.0); Mean Corpuscular HGB CONC 31.4 g/dL (32.0-36.0); Mean Corpuscular Hemoglobin 28.6 pg (27.0-31.0); Mean Corpuscular Volume 91.1 fL (78.0-98.0); Mean Platelet Volume 8.7 fL (7.4-10.4); Platelet Count 170 thou/uL (130-400); RBC Distribution Width 13.8 % (11.5-14.5); Red Blood Cell (RBC) Count 5.04 mill/uL (4.70-6.10); White Blood Cell (WBC) Count 7.3 thou/uL (4.8-10.8)
[2019-04-18 10:52] LABS: Acetaminophen Less than 6.0 mcg/mL (10.0-30.0); Alcohol Less than 10 mg/dL (Less than 10); Salicylate Less than 8.0 mg/dL (15.0-30.0)
[2019-04-18 10:54] LABS: ALT (SGPT) 38 U/L (8-55); AST (SGOT) 68 U/L (5-34); Albumin 4.4 g/dL (3.5-5.0); Alkaline Phosphatase 73 U/L (40-110); Anion Gap 15 mmol/L (10-20); BUN (Urea Nitrogen) 17 mg/dL (8.4-25.7); Bilirubin, Total 0.9 mg/dL (0.2-1.2); Calc. Creatinine Clearance 0 mL/min (70-130); Calcium 9.4 mg/dL (7.8-10.44); Carbon Dioxide 26 mmol/L (22-29); Chloride 106 mmol/L (98-107); Estimated GFR-MDRD 62; Globulin 3.4 g/dL (2.4-3.5); Glucose 133 mg/dL (70-105); Potassium 3.9 mmol/L (3.5-5.1); Protein, Total 7.8 g/dL (6.0-8.3); Sodium 143 mmol/L (136-145)
[2019-04-18] MEDS ORDERED: Lidocaine 1% PF 5 ML VIAL ONE (11:42)
[2019-04-18] MEDS ORDERED: cefTRIAXone\\ROCEPHIN 1 GM VIAL ONE (11:42)
== END 2019-04-18 13:16 | disposition home or self-care (01) ==
LOC: BURERS 09:44
DX: F29 Unspecified psychosis not due to a substance or known physiological condition (principal); K21.9 Gastro-esophageal reflux disease without esophagitis; I10 Essential (primary) hypertension; F79 Unspecified intellectual disabilities; J45.909 Unspecified asthma, uncomplicated; E11.9 Type 2 diabetes mellitus without complications; F31.9 Bipolar disorder, unspecified; F20.9 Schizophrenia, unspecified; Z79.899 Other long term (current) drug therapy
CPT/HCPCS: 36415; 80053; 80307; 83605; 84484; 85025; 96372; 99284; J0696; J2001

== ENCOUNTER 2019-04-21 12:30 | Emergency (ER) | payer MEDICARE ==
--- NOTE | 2019-04-21 13:29 | RAD ---
XR Chest 1 View Portable HISTORY: Altered mental status COMPARISON: 08/09/2017 FINDINGS: The heart size is normal. The lungs are well expanded without focal areas of consolidation, pneumothorax or pleural effusions. IMPRESSION: No radiographic evidence of acute cardiopulmonary process.
[2019-04-21 13:30] LABS: #Lymphocytes 0.7 thou/uL (1.20-3.40); #Monocytes 0.2 thou/uL (0.11-0.59); #Neutrophils 3.8 thou/uL (1.40-6.50); %Basophils 0.6 % (0.0-1.0); %Eosinophils 0.2 % (0.0-10.0); %Lymphocytes 13.9 % (21.0-51.0); %Monocytes 3.7 % (0.0-10.0); %Neutrophils 81.6 % (42.0-75.0); Hemoglobin 15.3 g/dL (14.0-18.0); Mean Corpuscular HGB CONC 31.2 g/dL (32.0-36.0); Mean Corpuscular Hemoglobin 29.4 pg (27.0-31.0); Mean Corpuscular Volume 94.3 fL (78.0-98.0); Mean Platelet Volume 9.6 fL (7.4-10.4); Platelet Count 171 thou/uL (130-400); RBC Distribution Width 14.1 % (11.5-14.5); White Blood Cell (WBC) Count 4.7 thou/uL (4.8-10.8)
[2019-04-21 13:43] LABS: Acetaminophen Less than 6.0 mcg/mL (10.0-30.0); Alcohol Less than 10 mg/dL (Less than 10); Magnesium 2.2 mg/dL (1.6-2.6); Salicylate Less than 8.0 mg/dL (15.0-30.0)
[2019-04-21 13:44] LABS: Bilirubin Negative (Negative); Blood, Urine Negative (Negative); Clarity Slightly Cloudy (Clear); Glucose, Urine (Dipstick) Negative (Negative); Leukocyte Negative (Negative); Nitrite Negative (Negative); Protein, Urine (Dipstick) Negative (Neg-Trace); Urobilinogen 0.2 mg/dL (Less than 2)
[2019-04-21 13:48] LABS: ALT (SGPT) 52 U/L (8-55); AST (SGOT) 68 U/L (5-34); Albumin 4.7 g/dL (3.5-5.0); Alkaline Phosphatase 67 U/L (40-110); Anion Gap 18 mmol/L (10-20); BUN (Urea Nitrogen) 20 mg/dL (8.4-25.7); Bilirubin, Total 0.8 mg/dL (0.2-1.2); Calc. Creatinine Clearance 0 mL/min (70-130); Calcium 9.4 mg/dL (7.8-10.44); Carbon Dioxide 24 mmol/L (22-29); Chloride 102 mmol/L (98-107); Estimated GFR-MDRD Greater than 90; Globulin 3.6 g/dL (2.4-3.5); Glucose 131 mg/dL (70-105); Lipase 17 U/L (8-78); Potassium 4.3 mmol/L (3.5-5.1); Protein, Total 8.3 g/dL (6.0-8.3); Sodium 140 mmol/L (136-145)
[2019-04-21 13:50] LABS: Amphetamine Not Detected (NotDetected); Barbiturates Screen Not Detected (NotDetected); Benzodiazepine Screen Not Detected (NotDetected); Cocaine Metabolite Screen Not Detected (NotDetected); Medtox Control Line Valid? VALID (VALID); Methadone Not Detected (NotDetected); Methamphetamine Not Detected (NotDetected); Opiate Screen Not Detected (NotDetected); Oxycodone Screen Not Detected (NotDetected); Phencyclidine (PCP) Not Detected (NotDetected); THC/Cannabinoid Screen Not Detected (NotDetected); Tricyclic Screen Not Detected (NotDetected)
--- NOTE | 2019-04-21 13:52 | CT ---
Exam: CT brain PROVIDED CLINICAL HISTORY: Altered mental status COMPARISON: 04/14/2016 FINDINGS: Evaluation is limited by patient motion. The ventricular system is normal in size and morphology. No evidence for mass-producing intracranial hemorrhage or mass effect. The extracranial soft tissues and osseous structures demonstrate no evidence for an acute abnormality. IMPRESSION: No evidence for mass-producing intracranial hemorrhage or mass effect.
[2019-04-21] MEDS ORDERED: diphenhydrAMINE 50 MG/ML VIAL ONE (14:08)
== END 2019-04-21 14:30 | disposition short-term general hospital (02) ==
LOC: BURERS 12:30
DX: F20.2 Catatonic schizophrenia (principal); K21.9 Gastro-esophageal reflux disease without esophagitis; I10 Essential (primary) hypertension; J45.909 Unspecified asthma, uncomplicated; E11.9 Type 2 diabetes mellitus without complications; F79 Unspecified intellectual disabilities; F31.9 Bipolar disorder, unspecified
CPT/HCPCS: 51701; 70450; 71045; 80053; 80306; 80307; 81003; 83605; 83690; 83735; 84443; 84484; 85025; 93005; 94760; 96374; J1200

== ENCOUNTER 2019-06-03 15:29 | Emergency (ER) | payer MEDICARE ==
[2019-06-03] MEDS ORDERED: Ketorolac Tromethamine 60 MG/2 ML VIAL ONE (15:55)
[2019-06-03] MEDS ORDERED: methylPREDNISolone Sod Succ/PF 125 MG/2 ML VIAL ONE (15:55)
== END 2019-06-03 16:27 | disposition home or self-care (01) ==
LOC: BURERS 15:29
DX: M54.41 Lumbago with sciatica, right side (principal); K21.9 Gastro-esophageal reflux disease without esophagitis; I10 Essential (primary) hypertension; E11.9 Type 2 diabetes mellitus without complications; J45.909 Unspecified asthma, uncomplicated; F31.9 Bipolar disorder, unspecified; F20.9 Schizophrenia, unspecified; Z86.711 Personal history of pulmonary embolism
CPT/HCPCS: J1885; J2930; 96372; 99283

== ENCOUNTER 2019-06-23 12:54 | Emergency (ER) | payer MEDICARE ==
[2019-06-23 13:23] LABS: Bilirubin Negative (Negative); Blood, Urine Negative (Negative); Clarity Clear (Clear); Glucose, Urine (Dipstick) Negative (Negative); Leukocyte Negative (Negative); Nitrite Negative (Negative); Protein, Urine (Dipstick) Negative (Neg-Trace); Urobilinogen 0.2 mg/dL (Less than 2)
== END 2019-06-23 13:37 | disposition short-term general hospital (02) ==
LOC: BURERS 12:54
DX: N50.812 Left testicular pain (principal); K21.9 Gastro-esophageal reflux disease without esophagitis; I10 Essential (primary) hypertension; J45.909 Unspecified asthma, uncomplicated; E11.9 Type 2 diabetes mellitus without complications; F31.9 Bipolar disorder, unspecified; F20.9 Schizophrenia, unspecified; F79 Unspecified intellectual disabilities; Z86.711 Personal history of pulmonary embolism
CPT/HCPCS: 81003; 99284

== ENCOUNTER 2019-08-26 12:51 | Emergency (ER) | payer MEDICARE ==
[2019-08-26] MEDS ORDERED: Ketorolac Tromethamine 30 MG/ML VIAL ONE (13:16)
== END 2019-08-26 13:45 | disposition home or self-care (01) ==
LOC: BURERS 12:51
DX: M25.531 Pain in right wrist (principal); M54.5 Low back pain; K21.9 Gastro-esophageal reflux disease without esophagitis; I10 Essential (primary) hypertension; Z86.711 Personal history of pulmonary embolism; E11.9 Type 2 diabetes mellitus without complications; F31.9 Bipolar disorder, unspecified; F20.9 Schizophrenia, unspecified; Z79.899 Other long term (current) drug therapy; Z79.01 Long term (current) use of anticoagulants
CPT/HCPCS: 96372; 99283; J1885

== ENCOUNTER → 2019-09-15 | Emergency (ER) | payer MEDICARE ==
[~2019-09-15] MED LIST changes: -Acetaminophen 325 MG TAB ONE; +predniSONE 20 MG TAB ONE
== END ==
LOC: BURERS 01:50
DX: M54.41 Lumbago with sciatica, right side (principal); E11.9 Type 2 diabetes mellitus without complications; I10 Essential (primary) hypertension; J45.909 Unspecified asthma, uncomplicated; K21.9 Gastro-esophageal reflux disease without esophagitis; F20.9 Schizophrenia, unspecified; F31.9 Bipolar disorder, unspecified; Z79.899 Other long term (current) drug therapy
CPT/HCPCS: 99283; J7512

== ENCOUNTER 2019-11-11 23:47 | Emergency (ER) | payer MEDICARE ==
[2019-11-12 00:38] LABS: #Basophils 0.1 thou/uL (0.0-0.2); #Eosinphils 0.2 thou/uL (0.0-0.7); #Lymphocytes 2.4 thou/uL (1.20-3.40); #Monocytes 0.4 thou/uL (0.11-0.59); %Basophils 1.8 % (0.0-1.0); %Eosinophils 4.5 % (0.0-10.0); %Lymphocytes 47.1 % (21.0-51.0); %Monocytes 7.6 % (0.0-10.0); Hemoglobin 12.8 g/dL (14.0-18.0); Mean Corpuscular HGB CONC 30.5 g/dL (32.0-36.0); Mean Platelet Volume 8.9 fL (7.4-10.4); Platelet Count 165 thou/uL (130-400); RBC Distribution Width 13.1 % (11.5-14.5); White Blood Cell (WBC) Count 5.1 thou/uL (4.8-10.8)
[2019-11-12 00:48] LABS: ALT (SGPT) 45 U/L (8-55); AST (SGOT) 36 U/L (5-34); Albumin 4.1 g/dL (3.5-5.0); Anion Gap 12 mmol/L (10-20); BUN (Urea Nitrogen) 17 mg/dL (8.4-25.7); Bilirubin, Total 0.4 mg/dL (0.2-1.2); Calc. Creatinine Clearance 0 mL/min (70-130); Carbon Dioxide 25 mmol/L (22-29); Chloride 108 mmol/L (98-107); Estimated GFR-MDRD 75; Glucose 103 mg/dL (70-105); Potassium 3.9 mmol/L (3.5-5.1); Protein, Total 7.1 g/dL (6.0-8.3); Sodium 141 mmol/L (136-145)
[2019-11-12 01:05] LABS: Alkaline Phosphatase 59 U/L (40-110)
--- NOTE | 2019-11-12 07:25 | RAD ---
PORTABLE CHEST: DATE: 11/12/2019. FINDINGS: An AP portable film at 0021 is compared with the 04/21/2019 study. The heart is normal in size and the lungs are clear. No infiltrate or effusion was seen. There is n o vascular congestion or edema. IMPRESSION: No acute thoracic findings. POS: HOME
== END 2019-11-12 01:12 | disposition home or self-care (01) ==
LOC: BURERS 23:47
DX: R07.89 Other chest pain (principal); M54.5 Low back pain; K21.9 Gastro-esophageal reflux disease without esophagitis; I10 Essential (primary) hypertension; J45.909 Unspecified asthma, uncomplicated; E11.9 Type 2 diabetes mellitus without complications; F31.9 Bipolar disorder, unspecified; F20.9 Schizophrenia, unspecified; F79 Unspecified intellectual disabilities; Z79.899 Other long term (current) drug therapy; Z86.711 Personal history of pulmonary embolism
CPT/HCPCS: 36415; 71045; 80053; 84484; 85025; 93005

== ENCOUNTER 2020-03-28 22:01 | Emergency (ER) | payer MEDICARE ==
[2020-03-28] MEDS ORDERED: Ketorolac Tromethamine 30 MG/ML VIAL ONE (22:31)
== END 2020-03-28 22:40 | disposition home or self-care (01) ==
LOC: BURERS 22:01
DX: M54.5 Low back pain (principal); I10 Essential (primary) hypertension; K21.9 Gastro-esophageal reflux disease without esophagitis; J45.909 Unspecified asthma, uncomplicated; E11.9 Type 2 diabetes mellitus without complications; Z86.711 Personal history of pulmonary embolism; Z79.899 Other long term (current) drug therapy
CPT/HCPCS: 96372; 99283; J1885

== ENCOUNTER 2020-05-14 03:03 | Emergency (ER) | payer MEDICARE ==
[2020-05-14 03:32] LABS: #Basophils 0.1 thou/uL (0.0-0.2); #Eosinphils 0.2 thou/uL (0.0-0.7); #Lymphocytes 1.6 thou/uL (1.20-3.40); #Monocytes 0.4 thou/uL (0.11-0.59); #Neutrophils 2.2 thou/uL (1.40-6.50); %Basophils 1.5 % (0.0-1.0); %Eosinophils 4.1 % (0.0-10.0); %Lymphocytes 35.7 % (21.0-51.0); %Monocytes 8.9 % (0.0-10.0); %Neutrophils 49.8 % (42.0-75.0); Hemoglobin 14.8 g/dL (14.0-18.0); Mean Corpuscular HGB CONC 33.2 g/dL (32.0-36.0); Mean Corpuscular Hemoglobin 29.9 pg (27.0-31.0); Mean Corpuscular Volume 90.2 fL (78.0-98.0); Mean Platelet Volume 7.9 fL (7.4-10.4); Platelet Count 175 thou/uL (130-400); RBC Distribution Width 13.3 % (11.5-14.5); Red Blood Cell (RBC) Count 4.94 mill/uL (4.70-6.10); White Blood Cell (WBC) Count 4.4 thou/uL (4.8-10.8)
[2020-05-14 03:46] LABS: ALT (SGPT) 33 U/L (8-55); AST (SGOT) 33 U/L (5-34); Alkaline Phosphatase 63 U/L (40-110); Anion Gap 13 mmol/L (10-20); BUN (Urea Nitrogen) 12 mg/dL (8.4-25.7); Bilirubin, Total 0.5 mg/dL (0.2-1.2); Calc. Creatinine Clearance 0 mL/min (70-130); Calcium 8.9 mg/dL (7.8-10.44); Carbon Dioxide 26 mmol/L (22-29); Chloride 105 mmol/L (98-107); Globulin 3.1 g/dL (2.4-3.5); Glucose 107 mg/dL (70-105); Potassium 3.8 mmol/L (3.5-5.1); Protein, Total 7.1 g/dL (6.0-8.3); Sodium 140 mmol/L (136-145)
== END 2020-05-14 04:15 | disposition home or self-care (01) ==
LOC: BURERS 03:03
DX: R06.00 Dyspnea, unspecified (principal); I10 Essential (primary) hypertension; E11.9 Type 2 diabetes mellitus without complications; K21.9 Gastro-esophageal reflux disease without esophagitis; Z79.899 Other long term (current) drug therapy
CPT/HCPCS: 71045; 80053; 83880; 84484; 85025; 93005

== ENCOUNTER 2020-05-15 14:34 | Emergency (ER) | payer MEDICARE ==
[2020-05-15] MEDS ORDERED: Mag-Al Plus 1200 MG/1200 MG/120 MG/30 ML UDCUP ONE (15:00)
[2020-05-15] MEDS ORDERED: Lidocaine Viscous Sol 2% 15 ml UD Cup ONE (15:00)
[2020-05-15] MEDS ORDERED: Ondansetron ODT 4 MG TAB ONE (15:01)
== END 2020-05-15 15:20 | disposition home or self-care (01) ==
LOC: BURERS 14:34
DX: R10.9 Unspecified abdominal pain (principal); R10.816 Epigastric abdominal tenderness
CPT/HCPCS: 93005; Q0162

== ENCOUNTER 2020-06-15 17:31 | Emergency (ER) | payer MEDICARE ==
[2020-06-19 02:47] LABS: ALT (SGPT) 33 U/L (8-55); AST (SGOT) 28 U/L (5-34); Albumin 4.2 g/dL (3.5-5.0); Alkaline Phosphatase 70 U/L (40-110); Anion Gap 16 mmol/L (10-20); BUN (Urea Nitrogen) 11 mg/dL (8.4-25.7); Bilirubin, Total 0.4 mg/dL (0.2-1.2); Calc. Creatinine Clearance 0 mL/min (70-130); Calcium 9.1 mg/dL (7.8-10.44); Carbon Dioxide 24 mmol/L (22-29); Chloride 105 mmol/L (98-107); Globulin 3.3 g/dL (2.4-3.5); Glucose 103 mg/dL (70-105); Lipase 46 U/L (8-78); Potassium 3.8 mmol/L (3.5-5.1); Protein, Total 7.5 g/dL (6.0-8.3); Sodium 141 mmol/L (136-145)
[2020-06-19 02:50] LABS: Red Blood Cell (RBC) Count 5.12 mill/uL (4.70-6.10); White Blood Cell (WBC) Count 5.6 thou/uL (4.8-10.8)
[2020-06-19 02:51] LABS: Mean Corpuscular HGB CONC 32.4 g/dL (32.0-36.0); Mean Corpuscular Hemoglobin 29.4 pg (27.0-31.0); Mean Corpuscular Volume 90.8 fL (78.0-98.0); Platelet Count 187 thou/uL (130-400); RBC Distribution Width 13.1 % (11.5-14.5)
[2020-06-19 04:02] LABS: Anisocytosis SLIGHT = 6-15 cells (100X) (0-5/hpf); Eosinophils 4 % (0-10); Lymphocytes 34 % (21-51); MDiff Complete? YES; Monocytes 7 % (0-10); Neutrophil 54 % (42-75); Platelet Morphology Comment Appears Adequate
== END 2020-06-15 18:40 | disposition home or self-care (01) ==
LOC: BURERS 17:31
DX: R10.9 Unspecified abdominal pain (principal); K21.9 Gastro-esophageal reflux disease without esophagitis; E11.9 Type 2 diabetes mellitus without complications
CPT/HCPCS: 36415; 80053; 83690; 85025; 99283

== ENCOUNTER 2020-06-19 01:51 | Emergency (ER) | payer MEDICARE ==
[2020-06-19 04:58] LABS: Clarity Slightly Cloudy (Clear)
[2020-06-19 04:59] LABS: Specific Gravity, Urine 1.026 (1.002-1.036)
[2020-06-19 05:00] LABS: Bilirubin Small (Negative); Blood, Urine Negative (Negative); Glucose, Urine (Dipstick) Negative (Negative); Ketone, Urine Trace mg/dL (Negative); Leukocyte Trace (Negative); Nitrite Negative (Negative); Protein, Urine (Dipstick) Negative (Neg-Trace); pH, Urine 5.5 (5.0-9.0)
[2020-06-19 05:03] LABS: Bacteria/HPF Rare-Few HPF (None Seen); RBC/HPF 0-3 HPF (0-3); Squamous Epithelial 0-3 HPF (0-3); WBC/HPF 0-3 HPF (0-3)
== END 2020-06-19 05:00 | disposition home or self-care (01) ==
LOC: BURERS 01:51
DX: R10.9 Unspecified abdominal pain (principal); N50.812 Left testicular pain; E11.9 Type 2 diabetes mellitus without complications; K21.9 Gastro-esophageal reflux disease without esophagitis; Z79.899 Other long term (current) drug therapy
CPT/HCPCS: 81003; 81015; 99284

== ENCOUNTER 2020-06-20 12:35 | Emergency (ER) | payer MEDICARE ==
[2020-06-20 13:40] LABS: #Eosinphils 0.2 thou/uL (0.0-0.7); #Lymphocytes 1.4 thou/uL (1.20-3.40); #Monocytes 0.4 thou/uL (0.11-0.59); #Neutrophils 1.7 thou/uL (1.40-6.50); %Basophils 1.1 % (0.0-1.0); %Eosinophils 4.2 % (0.0-10.0); %Lymphocytes 38.5 % (21.0-51.0); %Neutrophils 46.1 % (42.0-75.0); Hemoglobin 14.4 g/dL (14.0-18.0); Mean Corpuscular HGB CONC 33.1 g/dL (32.0-36.0); Mean Corpuscular Hemoglobin 30.1 pg (27.0-31.0); Mean Corpuscular Volume 90.9 fL (78.0-98.0); Mean Platelet Volume 8.1 fL (7.4-10.4); Platelet Count 160 thou/uL (130-400); RBC Distribution Width 12.9 % (11.5-14.5); White Blood Cell (WBC) Count 3.7 thou/uL (4.8-10.8)
[2020-06-20 13:51] LABS: ALT (SGPT) 33 U/L (8-55); AST (SGOT) 25 U/L (5-34); Albumin 3.9 g/dL (3.5-5.0); Alkaline Phosphatase 69 U/L (40-110); Anion Gap 14 mmol/L (10-20); BUN (Urea Nitrogen) 7 mg/dL (8.4-25.7); Bilirubin, Total 0.8 mg/dL (0.2-1.2); Calc. Creatinine Clearance 0 mL/min (70-130); Calcium 8.8 mg/dL (7.8-10.44); Carbon Dioxide 27 mmol/L (22-29); Chloride 105 mmol/L (98-107); Glucose 116 mg/dL (70-105); Potassium 3.7 mmol/L (3.5-5.1); Protein, Total 6.9 g/dL (6.0-8.3); Sodium 142 mmol/L (136-145)
== END 2020-06-20 14:25 | disposition home or self-care (01) ==
LOC: BURERS 12:35
DX: R53.1 Weakness (principal); E11.9 Type 2 diabetes mellitus without complications; K21.9 Gastro-esophageal reflux disease without esophagitis; F20.9 Schizophrenia, unspecified; Z79.899 Other long term (current) drug therapy
CPT/HCPCS: 36415; 80053; 85025; 99283

== ENCOUNTER 2020-06-30 09:06 | Emergency (ER) | payer MEDICARE ==
[2020-06-30 09:45] LABS: #Basophils 0.1 thou/uL (0.0-0.2); #Eosinphils 0.2 thou/uL (0.0-0.7); #Lymphocytes 1.1 thou/uL (1.20-3.40); #Monocytes 0.3 thou/uL (0.11-0.59); %Basophils 1.7 % (0.0-1.0); %Eosinophils 3.4 % (0.0-10.0); %Monocytes 6.9 % (0.0-10.0); Hemoglobin 14.2 g/dL (14.0-18.0); Mean Corpuscular HGB CONC 31.8 g/dL (32.0-36.0); Mean Corpuscular Hemoglobin 29.2 pg (27.0-31.0); Mean Corpuscular Volume 91.9 fL (78.0-98.0); Platelet Count 180 thou/uL (130-400); RBC Distribution Width 13.6 % (11.5-14.5); Red Blood Cell (RBC) Count 4.87 mill/uL (4.70-6.10); White Blood Cell (WBC) Count 4.7 thou/uL (4.8-10.8)
[2020-06-30 09:58] LABS: Acetaminophen Less than 6.0 mcg/mL (10.0-30.0); Alcohol Less than 10 mg/dL (Less than 10); Salicylate Less than 8.0 mg/dL (15.0-30.0)
[2020-06-30 10:00] LABS: Bilirubin Negative (Negative); Blood, Urine Negative (Negative); Clarity Clear (Clear); Glucose, Urine (Dipstick) Negative (Negative); Ketone, Urine Negative (Negative); Leukocyte Negative (Negative); Nitrite Negative (Negative); Protein, Urine (Dipstick) Negative (Neg-Trace); Urobilinogen 0.2 mg/dL (Less than 2)
[2020-06-30 10:01] LABS: ALT (SGPT) 25 U/L (8-55); AST (SGOT) 21 U/L (5-34); Albumin 4.1 g/dL (3.5-5.0); Alkaline Phosphatase 69 U/L (40-110); Anion Gap 13 mmol/L (10-20); BUN (Urea Nitrogen) 17 mg/dL (8.4-25.7); Bilirubin, Total 0.6 mg/dL (0.2-1.2); Calc. Creatinine Clearance 0 mL/min (70-130); Calcium 9.1 mg/dL (7.8-10.44); Carbon Dioxide 27 mmol/L (22-29); Chloride 103 mmol/L (98-107); Globulin 3.1 g/dL (2.4-3.5); Glucose 127 mg/dL (70-105); Lipase 33 U/L (8-78); Potassium 4.1 mmol/L (3.5-5.1); Protein, Total 7.2 g/dL (6.0-8.3); Sodium 139 mmol/L (136-145)
[2020-06-30 10:16] LABS: Amphetamine Not Detected (NotDetected); Barbiturates Screen Not Detected (NotDetected); Benzodiazepine Screen Not Detected (NotDetected); Cocaine Metabolite Screen Not Detected (NotDetected); Medtox Control Line Valid? VALID (VALID); Methadone Not Detected (NotDetected); Methamphetamine Not Detected (NotDetected); Opiate Screen Not Detected (NotDetected); Oxycodone Screen Not Detected (NotDetected); Phencyclidine (PCP) Not Detected (NotDetected); THC/Cannabinoid Screen Not Detected (NotDetected); Tricyclic Screen Not Detected (NotDetected)
== END 2020-06-30 13:45 | disposition home or self-care (01) ==
LOC: BURERS 09:06
DX: R07.9 Chest pain, unspecified (principal); R00.1 Bradycardia, unspecified; M54.5 Low back pain; G89.29 Other chronic pain; E11.9 Type 2 diabetes mellitus without complications; K21.9 Gastro-esophageal reflux disease without esophagitis; Z79.899 Other long term (current) drug therapy
CPT/HCPCS: 36415; 71045; 74177; 80053; 80306; 80307; 81003; 83690; 83880; 84484; 85025; 93005

== ENCOUNTER 2020-07-02 23:53 | Emergency (ER) | payer MEDICARE ==
[2020-07-03] MEDS ORDERED: Lidocaine Viscous Sol 2% 15 ml UD Cup ONE (00:23)
[2020-07-03] MEDS ORDERED: Mag-Al Plus 1200 MG/1200 MG/120 MG/30 ML UDCUP ONE (00:23)
== END 2020-07-03 00:36 | disposition home or self-care (01) ==
LOC: BURERS 23:53
DX: R10.9 Unspecified abdominal pain (principal); R11.2 Nausea with vomiting, unspecified; K21.9 Gastro-esophageal reflux disease without esophagitis; E11.9 Type 2 diabetes mellitus without complications; Z79.899 Other long term (current) drug therapy; Z79.4 Long term (current) use of insulin
CPT/HCPCS: 99284

== ENCOUNTER 2020-07-28 17:49 | Emergency (ER) | payer MEDICARE ==
[2020-07-28 18:30] LABS: Hemoglobin 14.2 g/dL (14.0-18.0); Mean Corpuscular HGB CONC 33.2 g/dL (32.0-36.0); Mean Corpuscular Volume 90.6 fL (78.0-98.0); Mean Platelet Volume 9.5 fL (7.4-10.4); Platelet Count 174 thou/uL (130-400); RBC Distribution Width 13.2 % (11.5-14.5); Red Blood Cell (RBC) Count 4.73 mill/uL (4.70-6.10)
[2020-07-28 18:41] LABS: ALT (SGPT) 22 U/L (8-55); AST (SGOT) 17 U/L (5-34); Albumin 3.7 g/dL (3.5-5.0); Alkaline Phosphatase 66 U/L (40-110); Anion Gap 17 mmol/L (10-20); BUN (Urea Nitrogen) 21 mg/dL (8.4-25.7); Bilirubin, Total 0.3 mg/dL (0.2-1.2); Calc. Creatinine Clearance 0 mL/min (70-130); Calcium 8.6 mg/dL (7.8-10.44); Carbon Dioxide 24 mmol/L (22-29); Chloride 101 mmol/L (98-107); Globulin 3.1 g/dL (2.4-3.5); Glucose 118 mg/dL (70-105); Lipase 51 U/L (8-78); Protein, Total 6.8 g/dL (6.0-8.3); Sodium 138 mmol/L (136-145)
[2020-07-28 18:52] LABS: Band 1 % (5-11); Lymphocytes 40 % (21-51); MDiff Complete? YES; Monocytes 4 % (0-10); Neutrophil 53 % (42-75)
[2020-07-28] MEDS ORDERED: Lidocaine Viscous Sol 2% 15 ml UD Cup ONE (19:16)
[2020-07-28] MEDS ORDERED: Mag-Al Plus 1200 MG/1200 MG/120 MG/30 ML UDCUP ONE (19:16)
== END 2020-07-28 20:15 | disposition home or self-care (01) ==
LOC: BURERS 17:49
DX: R07.89 Other chest pain (principal); K21.9 Gastro-esophageal reflux disease without esophagitis; E11.9 Type 2 diabetes mellitus without complications; Z79.899 Other long term (current) drug therapy
CPT/HCPCS: 71045; 80053; 83690; 83880; 84484; 85025; 85379

== ENCOUNTER 2020-08-26 20:43 | Emergency (ER) | payer MEDICARE ==
[2020-08-26] MEDS ORDERED: Fluorescein Opthalmic Strip ONE (21:25)
== END 2020-08-26 21:37 | disposition home or self-care (01) ==
LOC: BURERS 20:43
DX: H57.11 Ocular pain, right eye (principal); E11.9 Type 2 diabetes mellitus without complications; K21.9 Gastro-esophageal reflux disease without esophagitis
CPT/HCPCS: 99283

== ENCOUNTER 2020-08-28 17:11 | Emergency (ER) | payer MEDICARE | END 2020-08-28 17:35 | disposition home or self-care (01) | LOC: BURERS 17:11 | DX: M54.5 Low back pain (principal); G89.29 Other chronic pain; E11.9 Type 2 diabetes mellitus without complications; K21.9 Gastro-esophageal reflux disease without esophagitis | CPT/HCPCS: 99283 ==

== ENCOUNTER 2020-09-15 21:14 | Emergency (ER) | payer MEDICARE | END 2020-09-15 22:52 | disposition home or self-care (01) | LOC: BURERS 21:14 | DX: M25.551 Pain in right hip (principal); E11.9 Type 2 diabetes mellitus without complications; K21.9 Gastro-esophageal reflux disease without esophagitis | CPT/HCPCS: 99281 ==

== ENCOUNTER 2020-09-24 14:23 | Inpatient (IN) | payer MEDICARE ==
[2020-09-24] MEDS ORDERED: Ketorolac Tromethamine 30 MG/ML VIAL ONE (14:59)
[2020-09-24 15:56] LABS: SARS-CoV-2 NAA Rapid Test DETECTED (NotDetected)
[2020-09-24] MEDS ORDERED: Albuterol 200 PUFF (6.7GM INHALER) INH PRN (21:04)
[2020-09-24] MEDS ORDERED: Ibuprofen 800 MG TAB PO PRN (21:13)
[2020-09-24] MEDS ORDERED: Acetaminophen 325 MG TAB PO PRN (21:15)
[2020-09-24] MEDS ORDERED: Ondansetron PF 4 MG/2 ML Vial IVP PRN (21:15)
[2020-09-24] MEDS ORDERED: Ondansetron ODT 4 MG TAB SL PRN (21:15)
[2020-09-24] MEDS: Benztropine 1 MG TAB PO SCH (21:49)
[2020-09-24] MEDS: traMADol HCl 50 MG TAB PO SCH (21:49)
[2020-09-24] MEDS: traZODone HCl 50 MG TAB PO SCH (21:49)
[2020-09-25] MEDS: risperiDONE 0.5 MG TAB PO SCH (08:14)
[2020-09-25] MEDS: Aripiprazole 10 MG TAB PO SCH (08:14)
[2020-09-25] MEDS: Finasteride 5 MG TAB PO SCH (08:15)
[2020-09-25] MEDS: Allopurinol 100 MG TAB PO SCH (08:15)
[2020-09-25] MEDS: Tamsulosin HCl 0.4 MG CAP PO SCH (08:15)
[2020-09-25] MEDS: Rivaroxaban 10 MG TAB PO SCH (08:15)
[2020-09-25] MEDS: traMADol HCl 50 MG TAB PO SCH ×2 (08:15→22:06)
[2020-09-25] MEDS: Lisinopril 10 MG TAB PO SCH (08:16)
[2020-09-25] MEDS ORDERED: Lisinopril 5 MG TAB PO SCH ×2 (09:00)
[2020-09-25] MEDS: Mometasone/Formoterol 200/5 60 PUFF INH SCH (18:40)
[2020-09-25] MEDS: Benztropine 1 MG TAB PO SCH (22:06)
[2020-09-25] MEDS: traZODone HCl 50 MG TAB PO SCH (22:06)
[2020-09-26] MEDS: Mometasone/Formoterol 200/5 60 PUFF INH SCH ×2 (06:05→18:58)
[2020-09-26 06:45] LABS: Hemoglobin 13.3 g/dL (14.0-18.0); Platelet Count 218 thou/uL (130-400)
[2020-09-26 06:55] LABS: Calc. Creatinine Clearance 396 mL/min (70-130)
[2020-09-26] MEDS: traMADol HCl 50 MG TAB PO SCH ×2 (09:11→20:31)
[2020-09-26] MEDS: Lisinopril 10 MG TAB PO SCH (09:12)
[2020-09-26] MEDS: Rivaroxaban 10 MG TAB PO SCH (09:12)
[2020-09-26] MEDS: risperiDONE 0.5 MG TAB PO SCH (09:12)
[2020-09-26] MEDS: Finasteride 5 MG TAB PO SCH (09:13)
[2020-09-26] MEDS: Aripiprazole 10 MG TAB PO SCH (09:13)
[2020-09-26] MEDS: Tamsulosin HCl 0.4 MG CAP PO SCH (09:13)
[2020-09-26] MEDS: Allopurinol 100 MG TAB PO SCH (09:13)
[2020-09-26] MEDS: Benztropine 1 MG TAB PO SCH (20:31)
[2020-09-26] MEDS: traZODone HCl 50 MG TAB PO SCH (20:31)
[2020-09-27] MEDS: Mometasone/Formoterol 200/5 60 PUFF INH SCH ×2 (05:59→18:26)
[2020-09-27] MEDS: risperiDONE 0.5 MG TAB PO SCH (08:18)
[2020-09-27] MEDS: Aripiprazole 10 MG TAB PO SCH (08:19)
[2020-09-27] MEDS: Allopurinol 100 MG TAB PO SCH (08:20)
[2020-09-27] MEDS: Lisinopril 10 MG TAB PO SCH (08:20)
[2020-09-27] MEDS: traMADol HCl 50 MG TAB PO SCH ×2 (08:20→20:28)
[2020-09-27] MEDS: Finasteride 5 MG TAB PO SCH (08:20)
[2020-09-27] MEDS: Tamsulosin HCl 0.4 MG CAP PO SCH (08:20)
[2020-09-27] MEDS: Rivaroxaban 10 MG TAB PO SCH (08:20)
[2020-09-27] MEDS: traZODone HCl 50 MG TAB PO SCH (20:28)
[2020-09-27] MEDS: Benztropine 1 MG TAB PO SCH (20:28)
[2020-09-28] MEDS: Mometasone/Formoterol 200/5 60 PUFF INH SCH ×2 (06:08→19:37)
[2020-09-28] MEDS: risperiDONE 0.5 MG TAB PO SCH (09:39)
[2020-09-28] MEDS: Tamsulosin HCl 0.4 MG CAP PO SCH (09:40)
[2020-09-28] MEDS: Lisinopril 10 MG TAB PO SCH (09:40)
[2020-09-28] MEDS: Aripiprazole 10 MG TAB PO SCH (09:40)
[2020-09-28] MEDS: traMADol HCl 50 MG TAB PO SCH ×2 (09:41→20:16)
[2020-09-28] MEDS: Allopurinol 100 MG TAB PO SCH (09:41)
[2020-09-28] MEDS: Finasteride 5 MG TAB PO SCH (09:41)
[2020-09-28] MEDS: Rivaroxaban 10 MG TAB PO SCH (09:41)
[2020-09-28] MEDS: traZODone HCl 50 MG TAB PO SCH (20:16)
[2020-09-28] MEDS: Benztropine 1 MG TAB PO SCH (20:16)
[2020-09-29 06:12] LABS: Hemoglobin 13.8 g/dL (14.0-18.0); Platelet Count 218 thou/uL (130-400)
[2020-09-29] MEDS: Mometasone/Formoterol 200/5 60 PUFF INH SCH ×2 (06:21→22:03)
[2020-09-29] MEDS: risperiDONE 0.5 MG TAB PO SCH (09:59)
[2020-09-29] MEDS: Tamsulosin HCl 0.4 MG CAP PO SCH (09:59)
[2020-09-29] MEDS: Aripiprazole 10 MG TAB PO SCH (10:00)
[2020-09-29] MEDS: Allopurinol 100 MG TAB PO SCH (10:00)
[2020-09-29] MEDS: Lisinopril 10 MG TAB PO SCH (10:00)
[2020-09-29] MEDS: Rivaroxaban 10 MG TAB PO SCH (10:00)
[2020-09-29] MEDS: Finasteride 5 MG TAB PO SCH (10:01)
[2020-09-29] MEDS: traMADol HCl 50 MG TAB PO SCH ×2 (10:02→22:03)
[2020-09-29] MEDS: Polyethylene Glycol 3350 17 GM Packet PO PRN (10:03)
[2020-09-29] MEDS: traZODone HCl 50 MG TAB PO SCH (22:02)
[2020-09-29] MEDS: Benztropine 1 MG TAB PO SCH (22:03)
[2020-09-30] MEDS: Polyethylene Glycol 3350 17 GM Packet PO PRN (09:51)
[2020-09-30] MEDS: Finasteride 5 MG TAB PO SCH (09:52)
[2020-09-30] MEDS: Allopurinol 100 MG TAB PO SCH (09:52)
[2020-09-30] MEDS: Tamsulosin HCl 0.4 MG CAP PO SCH (09:52)
[2020-09-30] MEDS: Rivaroxaban 10 MG TAB PO SCH (09:52)
[2020-09-30] MEDS: risperiDONE 0.5 MG TAB PO SCH (09:52)
[2020-09-30] MEDS: Lisinopril 10 MG TAB PO SCH (09:52)
[2020-09-30] MEDS: traMADol HCl 50 MG TAB PO SCH ×2 (09:53→22:15)
[2020-09-30] MEDS: Aripiprazole 10 MG TAB PO SCH (09:53)
[2020-09-30] MEDS: Mometasone/Formoterol 200/5 60 PUFF INH SCH ×2 (09:54→22:18)
[2020-09-30] MEDS: Benztropine 1 MG TAB PO SCH (22:15)
[2020-09-30] MEDS: traZODone HCl 50 MG TAB PO SCH (22:15)
[2020-09-30 22:22] VITALS: BMI 47.5
[2020-10-01] MEDS: Mometasone/Formoterol 200/5 60 PUFF INH SCH ×2 (08:48→20:10)
[2020-10-01] MEDS: Finasteride 5 MG TAB PO SCH (08:49)
[2020-10-01] MEDS: Lisinopril 10 MG TAB PO SCH (08:49)
[2020-10-01] MEDS: Rivaroxaban 10 MG TAB PO SCH (08:49)
[2020-10-01] MEDS: Allopurinol 100 MG TAB PO SCH (08:49)
[2020-10-01] MEDS: Tamsulosin HCl 0.4 MG CAP PO SCH (08:49)
[2020-10-01] MEDS: Aripiprazole 10 MG TAB PO SCH (08:49)
[2020-10-01] MEDS: traMADol HCl 50 MG TAB PO SCH ×2 (08:50→20:10)
[2020-10-01] MEDS: risperiDONE 0.5 MG TAB PO SCH (08:50)
[2020-10-01] MEDS: traZODone HCl 50 MG TAB PO SCH (20:10)
[2020-10-01] MEDS: Benztropine 1 MG TAB PO SCH (20:10)
[2020-10-02 05:53] LABS: Hemoglobin 13.8 g/dL (14.0-18.0); Platelet Count 216 thou/uL (130-400)
[2020-10-02] MEDS: Allopurinol 100 MG TAB PO SCH (08:46)
[2020-10-02] MEDS: risperiDONE 0.5 MG TAB PO SCH (08:46)
[2020-10-02] MEDS: Rivaroxaban 10 MG TAB PO SCH (08:46)
[2020-10-02] MEDS: Mometasone/Formoterol 200/5 60 PUFF INH SCH ×2 (08:46→21:57)
[2020-10-02] MEDS: Tamsulosin HCl 0.4 MG CAP PO SCH (08:47)
[2020-10-02] MEDS: Finasteride 5 MG TAB PO SCH (08:47)
[2020-10-02] MEDS: Lisinopril 10 MG TAB PO SCH (08:47)
[2020-10-02] MEDS: Aripiprazole 10 MG TAB PO SCH (08:47)
[2020-10-02] MEDS: traMADol HCl 50 MG TAB PO SCH ×2 (08:47→21:56)
[2020-10-02] MEDS: Benztropine 1 MG TAB PO SCH (21:56)
[2020-10-02] MEDS: traZODone HCl 50 MG TAB PO SCH (21:57)
[2020-10-03] MEDS: risperiDONE 0.5 MG TAB PO SCH (08:53)
[2020-10-03] MEDS: traMADol HCl 50 MG TAB PO SCH ×2 (08:54→21:11)
[2020-10-03] MEDS: Finasteride 5 MG TAB PO SCH (08:54)
[2020-10-03] MEDS: Aripiprazole 10 MG TAB PO SCH (08:54)
[2020-10-03] MEDS: Tamsulosin HCl 0.4 MG CAP PO SCH (08:55)
[2020-10-03] MEDS: Allopurinol 100 MG TAB PO SCH (08:55)
[2020-10-03] MEDS: Rivaroxaban 10 MG TAB PO SCH (08:55)
[2020-10-03] MEDS: Mometasone/Formoterol 200/5 60 PUFF INH SCH ×2 (09:01→21:12)
[2020-10-03] MEDS: Lisinopril 10 MG TAB PO SCH (09:01)
[2020-10-03] MEDS: traZODone HCl 50 MG TAB PO SCH (21:11)
[2020-10-03] MEDS: Benztropine 1 MG TAB PO SCH (21:11)
[2020-10-04 06:15] VITALS: BP 134/78; TEMP 97.6
[2020-10-04] MEDS: Rivaroxaban 10 MG TAB PO SCH (08:37)
[2020-10-04] MEDS: Finasteride 5 MG TAB PO SCH (08:37)
[2020-10-04] MEDS: Allopurinol 100 MG TAB PO SCH (08:37)
[2020-10-04] MEDS: Tamsulosin HCl 0.4 MG CAP PO SCH (08:37)
[2020-10-04] MEDS: Aripiprazole 10 MG TAB PO SCH (08:37)
[2020-10-04] MEDS: traMADol HCl 50 MG TAB PO SCH (08:38)
[2020-10-04] MEDS: Mometasone/Formoterol 200/5 60 PUFF INH SCH (08:38)
[2020-10-04] MEDS: risperiDONE 0.5 MG TAB PO SCH (08:38)
[2020-10-04] MEDS: Lisinopril 10 MG TAB PO SCH (08:39)
[2020-10-04] MEDS: Polyethylene Glycol 3350 17 GM Packet PO PRN (08:39)
== END 2020-10-04 13:30 | DRG 178 ==
LOC: BURERS 14:23 → OBSVTOIN 19:00 → BURMED 19:00
PROVIDERS: ADMIT Family Medicine; ATTEND Family Medicine
PROC: 8E0ZXY6 Isolation (ICD-10-PCS; principal; 2020-09-24)
DX: U07.1 COVID-19 (principal); Z68.42 Body mass index [BMI] 45.0-49.9, adult; F25.9 Schizoaffective disorder, unspecified; I10 Essential (primary) hypertension; N40.0 Benign prostatic hyperplasia without lower urinary tract symptoms; R73.03 Prediabetes; G89.29 Other chronic pain; K21.9 Gastro-esophageal reflux disease without esophagitis; M54.5 Low back pain; E66.9 Obesity, unspecified; J45.909 Unspecified asthma, uncomplicated; F31.9 Bipolar disorder, unspecified; Z86.711 Personal history of pulmonary embolism; Z79.01 Long term (current) use of anticoagulants; Z98.890 Other specified postprocedural states; Z88.1 Allergy status to other antibiotic agents; Z88.8 Allergy status to other drugs, medicaments and biological substances; Z79.51 Long term (current) use of inhaled steroids; Z79.899 Other long term (current) drug therapy; Z88.2 Allergy status to sulfonamides; Z91.14 Patient's other noncompliance with medication regimen; Z86.718 Personal history of other venous thrombosis and embolism
CPT/HCPCS: 36415; 82565; 85014; 85018; 85049; 94664; 96372; 99284; J1885; U0002